=== PATIENT | female | born 1995 | race Hispanic/Latino ===

== ENCOUNTER 2020-06-07 14:11 | Outpatient (CLI) | payer MEDICAID ==
[2020-06-07] MEDS ORDERED: LACTATED RINGERS 1,000 ML IV SCH (15:00)
[2020-06-07 16:04] LABS: Bacteria,Urine 1+ /HPF (Negative); Bilirubin,Urine NEG (Negative); Blood,Urine SM (Negative); Color,Urine Yellow (Yellow); Mucus,Urine FEW /HPF; Urobilinogen,Urine < 2.0 mg/dL (<2.0)
[2020-06-07 16:05] LABS: Protein,Urine >500 mg/dL (Negative)
[2020-06-07 16:43] VITALS: BP 143/84
== END 2020-06-07 16:55 | disposition home or self-care (01) ==
LOC: TRG 14:11 → APU 14:37 → TRG 16:55
PROVIDERS: ATTEND Obstetrics & Gynecology
DX: O26.893 Other specified pregnancy related conditions, third trimester (principal); R10.9 Unspecified abdominal pain; Z3A.31 31 weeks gestation of pregnancy
CPT/HCPCS: 59025; 81001

== ENCOUNTER 2020-06-19 04:29 | Observation (INO) | payer MEDICAID ==
[2020-06-19] MEDS ORDERED: SODIUM CHLORIDE NASAL SPRAY 44ML NS PRN (05:26)
[2020-06-19] MEDS ORDERED: DEXTROSE 50% IN WATER (25GM) 50 ML SYRINGE IV PRN ×2 (05:26→12:34)
[2020-06-19] MEDS ORDERED: ONDANSETRON 4 MG/2 ML INJ IV PRN (05:26)
[2020-06-19] MEDS ORDERED: ACETAMINOPHEN 325 MG TAB PO PRN (05:26)
[2020-06-19] MEDS ORDERED: DOCUSATE SODIUM 100 MG CAP PO PRN (05:26)
[2020-06-19] MEDS ORDERED: MAGNESIUM SULFATE 4 GM/100 ML BAG IV ONE (05:33)
[2020-06-19] MEDS ORDERED: CALCIUM GLUCONATE 1000 MG/10 ML INJ IV ONE (05:33)
[2020-06-19] MEDS ORDERED: hydrALAZINE 20 MG/1 ML INJ IV PRN (05:33)
[2020-06-19] MEDS ORDERED: MAGNESIUM SULFATE 40GM/1000ML 40 GM/1,000 ML BAG IV SCH (06:00)
--- NOTE | 2020-06-19 06:56 | Ultrasound Report ---
ULTRASOUND BIOPHYSICAL PROFILE INDICATION: IUP at 32 wks, dm, chtn, well being. COMPARISON: None available. FINDINGS: breathing movement = 2 Gross body movement = 2 tone = 2 Qualitative amniotic fluid volume = 2 Total biophysical score = /8 IMPRESSION: biophysical profile = 04/14 OBSTETRIC ULTRASOUND INDICATION: IUP at 32 wks, dm, chtn, well being COMPARISON: No prior relevant imaging studies are available for comparison. TECHNIQUE: Transabdominal imaging was performed. FINDINGS: Single viable intrauterine is identified. lie: Cephalic. Heart rate: 1:30 bpm. measurements are as follows: Biparietal diameter 8.1 cm, 32 weeks 5 days Head circumference 29 cm, 32 weeks 3 days Abdominal circumference 27 cm, 31 weeks 0 days Femur length 5.7 cm, 30 weeks 0 days Amniotic fluid index is 11.4 cm, within normal limits. CONCLUSION: Single viable intrauterine currently in cephalic position. Amniotic fluid index is within n ormal limits. Signer Name: Reji Smith MD Signed: 06/19/2020 6:52 AM Workstation Name: [id number]
[2020-06-19 07:18] LABS: Basophils % (Auto) 0.2 % (0.0-1.8); Eosinophils # (Auto) 0.2 K/mm3 (0.0-0.4); Eosinophils % (Auto) 1.3 % (0.0-4.3); Hematocrit 36.9 % (30.3-42.9); Hemoglobin 13.2 gm/dl (10.1-14.3); Lymphocytes # (Auto) 2.2 K/mm3 (1.2-5.4); Mean Corpuscular HGB Conc 36 % (30-34); Mean Corpuscular Volume 86 fl (79-97); Monocytes # (Auto) 0.7 K/mm3 (0.0-0.8); Monocytes % (Auto) 4.3 % (0.0-7.3); Platelet Count 191 K/mm3 (140-440); Red Blood Count 4.31 M/mm3 (3.65-5.03); Red Cell Distribution Width 12.8 % (13.2-15.2)
[2020-06-19 07:23] LABS: Bilirubin,Urine NEG (Negative); Blood,Urine SM (Negative); Color,Urine Yellow (Yellow); Granular Casts,Urine 4 /LPF; Mucus,Urine FEW /HPF; Urobilinogen,Urine < 2.0 mg/dL (<2.0)
[2020-06-19 07:24] LABS: Protein,Urine >500 mg/dL (Negative)
[2020-06-19 07:40] LABS: Alanine Aminotransferase 10 units/L (7-56); Albumin 2.6 g/dL (3.9-5); Blood Urea Nitrogen 10 mg/dL (7-17); Calcium 9.4 mg/dL (8.4-10.2); Hemolysis Index 20
[2020-06-19 07:45] LABS: BUN/Creatinine Ratio 33
[2020-06-19] MEDS: BETAMET ACET/BETAMET NA PH 6 MG/ML INJ 5 ML MDV IM SCH (07:45)
[2020-06-19 08:40] LABS: Uric Acid 3.7 mg/dL (3.5-7.6)
--- NOTE | 2020-06-19 08:53 | History and Physical Report ---
History of Present Illness Date of examination: 06/19/20 Date of admission: 06/19/20 05:26 History of present illness: 24y/o @ 32+3 weeks presents for a PIH workup for chronic hypertension and GDMA2 on insulin. The patient was admitted with a complaint of headache and elevated blood pressures. Past History Past Medical History: hypertension, diabetes Past Surgical History: cholecystectomy, D&C, other (Ocular surgery) Social history: single - Obstetrical History Expected Date of Delivery: 08/11/20 Actual Gestation: 32 Week(s) 3 Day(s) : 4 Para: 0 Hx # Term Pregnancies: 0 Number of Pregnancies: 0 Spontaneous Abortions: 3 Induced : 0 Number of Living Children: 0 Medications and Allergies Allergies Allergy/AdvReac Type Severity Reaction Status Date / Time No Known Allergies Allergy Verified 06/07/20 15:00 Active Meds: Active Medications Acetaminophen (Tylenol) 650 mg PO Q4H PRN PRN Reason: Pain MILD(1-3)/Fever >100.5/MARIA Last Admin: 06/19/20 07:50 Dose: 650 mg Documented by: Betamethasone Acet/Betameth SodPhos (Celestone Soluspan) 12 mg IM Q24H TONG Stop: 06/20/20 06:01 Last Admin: 06/19/20 07:45 Dose: 12 mg Documented by: Dextrose (D50w (25gm) Syringe) 50 ml IV Q30MIN PRN; Protocol PRN Reason: Hypoglycemia Docusate Sodium (Colace) 100 mg PO Q12H PRN PRN Reason: Constipation Hydralazine HCl (Apresoline) 5 mg IV Q30MIN PRN PRN Reason: Hypertension Lactated Ringer's (Lactated Ringers) 1,000 mls @ 125 mls/hr IV DIRECT TONG Magnesium Sulfate (Magnesium Sulfate 40gm/1000ml) 40 gm in 1,000 mls @ 50 mls/hr IV DIRECT TONG Last Admin: 06/19/20 08:20 Dose: 2 gm/hr, 50 mls/hr Documented by: Labetalol HCl (Labetalol) 20 mg IV ONCE PRN PRN Reason: Hypertension Multivitamins/Iron/Calcium ( Vitamin) 1 each PO QDAY TONG Ondansetron HCl (Zofran) 4 mg IV Q6H PRN PRN Reason: Nausea And Vomiting Last Admin: 06/19/20 08:07 Dose: 4 mg Documented by: Sodium Chloride (Deep Sea) 2 spray NS Q4H PRN PRN Reason: Congestion Review of Systems All systems: negative - Vital Signs Vital signs: Vital Signs Pulse BP 86 158/91 06/19/20 05:00 06/19/20 05:00 Temp Pulse Resp BP Pulse Ox 97.9 F 102 H 20 146/84 96 06/19/20 05:27 06/19/20 08:34 06/19/20 05:27 06/19/20 08:34 06/19/20 07:07 - Physical Exam Breasts: Positive: deferred Cardiovascular: Regular rate Lungs: Positive: Clear to auscultation Results Result Diagrams: 06/19/20 06:35 06/19/20 06:35 Abnormal lab results 06/19/20 06/19/20 Range/Units 06:35 06:35 WBC 15.6 H (4.5-11.0) K/mm3 MCHC 36 H (30-34) % RDW 12.8 L (13.2-15.2) % Seg Neutrophils % 80.2 H (40.0-70.0) % Seg Neutrophils # 12.5 H (1.8-7.7) K/mm3 Sodium 135 L (137-145) mmol/L Carbon Dioxide 20 L (22-30) mmol/L Creatinine 0.3 L (0.6-1.2) mg/dL Total Protein 5.5 L (6.3-8.2) g/dL Albumin 2.6 L (3.9-5) g/dL All other labs normal. Assessment and Plan - Patient Problems (1) Chronic hypertension affecting Current Visit: Yes Status: Acute Plan to address problem: Admitted for magnesium and steroid therapy Patient is undergoing 24-hour urine collection and PIH labs (2) Gestational diabetes mellitus (GDM) affecting Current Visit: Yes Status: Acute
[2020-06-19] MEDS: PRENATAL VIT27-FE FUMARATE-FOLIC ACID VIT TAB PO SCH (09:56)
[2020-06-19] MEDS ORDERED: INSULIN NPH, HUMAN 100 UNIT/1 ML SUB-Q SCH ×3 (12:23→17:00)
[2020-06-19] MEDS ORDERED: INSULIN REGULAR, HUMAN 100 UNIT/ML 3ML VIAL SUB-Q SCH ×3 (12:24→22:00)
[2020-06-19] MEDS: INSULIN REGULAR, HUMAN 100 UNIT/ML 3ML VIAL SUB-Q SCH (13:43)
[2020-06-19] MEDS: LACTATED RINGERS 1,000 ML IV SCH (18:11)
[2020-06-20] MEDS: INSULIN LISPRO 100 UNIT/ML VIAL 3 mL SUB-Q SCH ×3 (01:31→13:11)
[2020-06-20] MEDS: LACTATED RINGERS 1,000 ML IV SCH (06:25)
[2020-06-20] MEDS: BETAMET ACET/BETAMET NA PH 6 MG/ML INJ 5 ML MDV IM SCH (07:56)
[2020-06-20] MEDS: INSULIN REGULAR, HUMAN 100 UNIT/ML 3ML VIAL SUB-Q SCH (08:09)
[2020-06-20] MEDS: PRENATAL VIT27-FE FUMARATE-FOLIC ACID VIT TAB PO SCH (11:43)
--- NOTE | 2020-06-20 12:46 | Consultation ---
History of Present Illness - Reason for Consult Consult date: 06/20/20 Past History Social history: single Medications and Allergies Allergies Allergy/AdvReac Type Severity Reaction Status Date / Time No Known Allergies Allergy Verified 06/07/20 15:00 Home Medications Medication Instructions Recorded Confirmed Last Taken Type Insulin NPH Human Isophane 20 units SUB-Q ACHS 06/20/20 06/20/20 Unknown History [Humulin N] Insulin Regular, Human [Humulin R] 16 units SUB-Q ACHS 06/20/20 06/20/20 06/19/20 22:00 History Pnv,Calcium 72/Iron,Carb/Folic 1 tab PO DAILY 06/20/20 06/20/20 06/19/20 10:00 History [ Plus Iron Tablet] hydrOXYzine PAMOATE [Vistaril] 50 mg PO Q6HR PRN 06/20/20 06/20/20 Unknown History labetaloL [Labetalol 100mg TAB] 100 mg PO BID 06/20/20 06/20/20 06/19/20 22:00 History Active Meds: Active Medications Acetaminophen (Tylenol) 650 mg PO Q4H PRN PRN Reason: Pain MILD(1-3)/Fever >100.5/MARIA Last Admin: 06/19/20 07:50 Dose: 650 mg Documented by: Dextrose (D50w (25gm) Syringe) 50 ml IV Q30MIN PRN; Protocol PRN Reason: Hypoglycemia Docusate Sodium (Colace) 100 mg PO Q12H PRN PRN Reason: Constipation Hydralazine HCl (Apresoline) 5 mg IV Q30MIN PRN PRN Reason: Hypertension Lactated Ringer's (Lactated Ringers) 1,000 mls @ 125 mls/hr IV DIRECT TONG Last Admin: 06/20/20 06:25 Dose: 125 mls/hr Documented by: Magnesium Sulfate (Magnesium Sulfate 40gm/1000ml) 40 gm in 1,000 mls @ 50 mls/hr IV DIRECT TONG Last Infusion: 06/20/20 09:40 Dose: Infused Documented by: Insulin Human Lispro (Humalog) 0 unit SUB-Q Q6H TONG; Protocol Last Admin: 06/20/20 06:14 Dose: 3 unit Documented by: Insulin Human NPH (Humulin N) 12 unit SUB-Q QPMDIAB TONG Last Admin: 06/19/20 19:10 Dose: 12 unit Documented by: Insulin Human NPH (Humulin N) 20 unit SUB-Q QDDIAB [facility] Last Admin: 06/19/20 13:42 Dose: 20 unit Documented by: Insulin Human Regular (Humulin R) 12 unit SUB-Q QHS [facility] Last Admin: 06/19/20 21:51 Dose: 12 unit Documented by: Insulin Human Regular (Humulin R) 30 unit SUB-Q QDDIAB [facility] Last Admin: 06/20/20 08:09 Dose: 30 unit Documented by: Labetalol HCl (Labetalol) 20 mg IV ONCE PRN PRN Reason: Hypertension Labetalol HCl (Labetalol) 200 mg PO BID [facility] Last Admin: 06/20/20 11:43 Dose: 200 mg Documented by: Multivitamins/Iron/Calcium ( Vitamin) 1 each PO QDAY [facility] Last Admin: 06/20/20 11:43 Dose: 1 each Documented by: Ondansetron HCl (Zofran) 4 mg IV Q6H PRN PRN Reason: Nausea And Vomiting Last Admin: 06/19/20 08:07 Dose: 4 mg Documented by: Sodium Chloride (Deep Sea) 2 spray NS Q4H PRN PRN Reason: Congestion Exam - Constitutional Vitals: Temp Pulse Resp BP Pulse Ox 98.1 F 98 H 18 127/65 97 06/20/20 08:26 06/20/20 12:42 06/20/20 06:29 06/20/20 12:35 06/20/20 12:42 Results - Labs CBC & Chem 7: 06/19/20 06:35 06/19/20 06:35 Labs: Abnormal lab results 06/19/20 06/19/20 06/20/20 Range/Units 17:38 18:20 00:24 POC Glucose 258 H (70-105) Magnesium 4.10 H 4.60 H (1.7-2.3) mg/dL 06/20/20 06/20/20 06/20/20 Range/Units 01:10 05:54 06:24 POC Glucose 251 H 207 H (70-105) Magnesium 5.10 H (1.7-2.3) mg/dL 06/20/20 Range/Units 12:53 POC Glucose 280 H (70-105) Magnesium (1.7-2.3) mg/dL Assessment and Plan [facility] Full consult to follow
[2020-06-20 15:35] VITALS: BP 140/68
[2020-06-20] MEDS ORDERED: FAMOTIDINE 20 MG/2 ML INJ IV SCH (16:00)
--- NOTE | 2020-06-20 17:04 | Progress Note ---
Assessment and Plan A: IUP at 33w1d Chronic HTN with superimposed preeclampsia, on labetalol 200 mg BID Type 2 DM, insulin dependent Obesity P: Pt will be discharged with close follow up this week with OB and MFM Plan to deliver at 34 wks Subjective - Subjective Date of service: 06/20/20 Principal diagnosis: CHTN, Type II DM, IUP at 33 wks Interval history: Pt without complaints initially, but pt now threatening to leave against medical advice because of the discomfort of the bed. 24 hour urine returned with 5587.5 mg of protein today, indicative of superimposed preclampsia. tracing reassuring. No obstetric complaints. Patient reports: movement normal, no new complaints, no loss of fluid, no vaginal bleeding, no contractions Objective - Vital Signs Vital Signs: Vital Signs - 12hr 06/20/20 06/20/20 06/20/20 05:34 06:29 06:34 Temperature Pulse Rate 86 86 Respiratory 18 Rate Blood Pressure 140/75 126/66 O2 Sat by Pulse Oximetry 06/20/20 06/20/20 06/20/20 07:34 08:26 09:47 Temperature 98.1 F Pulse Rate 86 86 Respiratory Rate Blood Pressure 140/67 O2 Sat by Pulse 94 Oximetry 06/20/20 06/20/20 06/20/20 09:49 09:53 09:57 Temperature Pulse Rate 100 H 101 H 98 H Respiratory Rate Blood Pressure 147/87 O2 Sat by Pulse 94 96 95 Oximetry 06/20/20 06/20/20 06/20/20 10:02 10:08 10:13 Temperature Pulse Rate 91 H 89 89 Respiratory Rate Blood Pressure O2 Sat by Pulse 94 93 94 Oximetry 06/20/20 06/20/20 06/20/20 10:18 10:20 10:23 Temperature Pulse Rate 85 87 86 Respiratory Rate Blood Pressure O2 Sat by Pulse 93 94 94 Oximetry 06/20/20 06/20/20 06/20/20 10:27 10:32 10:34 Temperature Pulse Rate 89 88 89 Respiratory Rate Blood Pressure 129/64 O2 Sat by Pulse 94 95 94 Oximetry 06/20/20 06/20/20 06/20/20 10:38 10:41 10:43 Temperature Pulse Rate 90 101 H 99 H Respiratory Rate Blood Pressure O2 Sat by Pulse 95 94 96 Oximetry 06/20/20 06/20/20 06/20/20 10:48 10:49 10:53 Temperature Pulse Rate 93 H 90 90 Respiratory Rate Blood Pressure O2 Sat by Pulse 96 94 96 Oximetry 06/20/20 06/20/20 06/20/20 10:58 11:03 11:08 Temperature Pulse Rate 95 H 95 H 91 H Respiratory Rate Blood Pressure O2 Sat by Pulse 98 96 96 Oximetry 06/20/20 06/20/20 06/20/20 11:13 11:17 11:23 Temperature Pulse Rate 92 H 98 H 91 H Respiratory Rate Blood Pressure O2 Sat by Pulse 96 96 96 Oximetry 06/20/20 06/20/20 06/20/20 11:29 11:35 11:39 Temperature Pulse Rate 95 H Respiratory Rate Blood Pressure O2 Sat by Pulse 73 L 83 L 97 Oximetry 06/20/20 06/20/20 06/20/20 11:44 11:49 11:54 Temperature Pulse Rate 94 H 92 H 111 H Respiratory Rate Blood Pressure O2 Sat by Pulse 97 97 97 Oximetry 06/20/20 06/20/20 06/20/20 12:00 12:05 12:09 Temperature Pulse Rate 106 H 101 H 96 H Respiratory Rate Blood Pressure O2 Sat by Pulse 96 97 97 Oximetry 06/20/20 06/20/20 06/20/20 12:14 12:19 12:32 Temperature Pulse Rate 102 H 98 H 100 H Respiratory Rate Blood Pressure O2 Sat by Pulse 96 97 97 Oximetry 06/20/20 06/20/20 06/20/20 12:35 12:38 12:42 Temperature Pulse Rate 98 H 99 H 98 H Respiratory Rate Blood Pressure 127/65 O2 Sat by Pulse 97 97 Oximetry 06/20/20 06/20/20 06/20/20 12:47 12:52 12:57 Temperature Pulse Rate 97 H 98 H 100 H Respiratory Rate Blood Pressure O2 Sat by Pulse 97 97 97 Oximetry 06/20/20 06/20/20 06/20/20 13:02 13:07 13:12 Temperature Pulse Rate 99 H 95 H 94 H Respiratory Rate Blood Pressure O2 Sat by Pulse 97 96 98 Oximetry 06/20/20 06/20/20 06/20/20 13:17 13:22 13:27 Temperature Pulse Rate 93 H 92 H 102 H Respiratory Rate Blood Pressure O2 Sat by Pulse 97 97 96 Oximetry 06/20/20 06/20/2006/20/20 13:32 13:34 13:37 Temperature Pulse Rate 95 H 93 H 92 H Respiratory Rate Blood Pressure 143/65 O2 Sat by Pulse 97 97 Oximetry 06/20/20 06/20/20 06/20/20 13:42 13:47 13:52 Temperature Pulse Rate 93 H 92 H 90 Respiratory Rate Blood Pressure O2 Sat by Pulse 98 98 97 Oximetry 06/20/20 06/20/20 06/20/20 13:57 14:04 14:09 Temperature Pulse Rate 90 104 H 92 H Respiratory Rate Blood Pressure O2 Sat by Pulse 98 96 97 Oximetry 06/20/20 06/20/20 06/20/20 14:14 14:15 14:19 Temperature Pulse Rate 91 H 54 L 94 H Respiratory Rate Blood Pressure O2 Sat by Pulse 97 90 97 Oximetry 06/20/20 06/20/20 06/20/20 14:24 14:30 14:33 Temperature Pulse Rate 90 93 H 91 H Respiratory Rate Blood Pressure 143/86 O2 Sat by Pulse 97 97 Oximetry 06/20/20 06/20/20 06/20/20 14:35 14:40 14:44 Temperature Pulse Rate 95 H 101 H 95 H Respiratory Rate Blood Pressure O2 Sat by Pulse 97 98 97 Oximetry 06/20/20 06/20/20 06/20/20 14:49 14:53 15:12 Temperature Pulse Rate 92 H 54 L 73 Respiratory Rate Blood Pressure O2 Sat by Pulse 97 82 L 91 Oximetry 06/20/20 06/20/20 06/20/20 15:18 15:25 15:26 Temperature Pulse Rate 96 H Respiratory Rate Blood Pressure O2 Sat by Pulse 86 94 98 Oximetry 06/20/20 06/20/20 06/20/20 15:31 15:34 15:35 Temperature Pulse Rate 101 H 98 H 99 H Respiratory Rate Blood Pressure 140/68 O2 Sat by Pulse 97 97 Oximetry 06/20/20 06/20/20 06/20/20 15:41 15:46 15:51 Temperature Pulse Rate 95 H 111 H 93 H Respiratory Rate Blood Pressure O2 Sat by Pulse 98 98 98 Oximetry 06/20/20 06/20/20 06/20/20 15:55 16:01 16:05 Temperature Pulse Rate 94 H 96 H 99 H Respiratory Rate Blood Pressure O2 Sat by Pulse 99 98 98 Oximetry 06/20/20 06/20/20 06/20/20 16:08 16:11 16:15 Temperature Pulse Rate 50 L Respiratory Rate Blood Pressure O2 Sat by Pulse 89 87 82 L Oximetry 06/20/20 06/20/20 06/20/20 16:21 16:23 16:30 Temperature Pulse Rate 26 L 127 H Respiratory Rate Blood Pressure O2 Sat by Pulse 82 L 82 L 83 L Oximetry - Exam Breasts: deferred Abdomen: Present: soft (obese, gravid ) Uterus: Present: normal (gravid ) FHR: auscultation normal Uterine Contraction Monitor Mode: External Uterine Contraction Pattern: Absent Uterine Tone Measurement Phase: Resting Extremities: edema (1+) - Labs Labs: Abnormal Labs 06/19/20 06/19/20 06/19/20 06:35 06:35 11:35 WBC 15.6 H MCHC 36 H RDW 12.8 L Seg Neutrophils % 80.2 H Seg Neutrophils # 12.5 H Sodium 135 L Carbon Dioxide 20 L Creatinine 0.3 L POC Glucose 195 H Magnesium Total Protein 5.5 L Albumin 2.6 L Ur Total Protein 24 Hr Urine Total Protein 06/19/20 06/19/20 06/20/20 17:38 18:20 00:24 WBC MCHC RDW Seg Neutrophils % Seg Neutrophils # Sodium Carbon Dioxide Creatinine POC Glucose 258 H Magnesium 4.10 H 4.60 H Total Protein Albumin Ur Total Protein 24 Hr Urine Total Protein 06/20/20 06/20/20 06/20/20 01:10 05:54 06:24 WBC MCHC RDW Seg Neutrophils % Seg Neutrophils # Sodium Carbon Dioxide Creatinine POC Glucose 251 H 207 H Magnesium 5.10 H Total Protein Albumin Ur Total Protein 24 Hr Urine Total Protein 06/20/20 06/20/20 06/20/20 07:00 12:53 13:08 WBC MCHC RDW Seg Neutrophils % Seg Neutrophils # Sodium Carbon Dioxide Creatinine POC Glucose 280 H Magnesium 3.40 H Total Protein Albumin Ur Total Protein 24 Hr 5587.50 H Urine Total Protein 149 H Laboratory Results - last 24 hr 06/19/20 06/19/20 06/20/20 17:38 18:20 00:24 POC Glucose 258 H Magnesium 4.10 H 4.60 H Urine Total Volume Ur Total Protein 24 Hr Urine Total Protein 06/20/20 06/20/20 06/20/20 01:10 05:54 06:24 POC Glucose 251 H 207 H Magnesium 5.10 H Urine Total Volume Ur Total Protein 24 Hr Urine Total Protein 06/20/20 06/20/20 06/20/20 07:00 12:53 13:08 POC Glucose 280 H Magnesium 3.40 H Urine Total Volume 3750 Ur Total Protein 24 Hr 5587.50 H Urine Total Protein 149 H - Results US- obstetric: report reviewed
--- NOTE | 2020-06-20 17:12 | Discharge Summary ---
Providers - Providers Date of Admission: 06/19/20 05:26 Date of discharge: 06/20/20 Attending physician: GIANNA BUTTS 06/20/20 07:39 Consult to Physician [CONS] Routine Comment: JC Consulting Provider: NUVIA JULIEN Physician Instructions: CONSULT WAS CALLED TO /ENZO Reason For Exam: IUP at 32 wks, chronic htn, rule out preeclampsia, Primary care physician: GIANNA BUTTS Hospitalization Reason for admission: other (elevated blood pressure ) Procedure details: IV Magnesium Sulfate for 24 hours Two dose of betamethasone Discharge diagnosis: other (IUP at 33 wks, chronic hypertension with superimposed preeclampsia, Type II DM ) Hospital course: Patient was admitted with elevated blood pressures in the setting of chronic hypertension. She was started on labetalol 200 mg twice daily. She also received 24 hours of IV magnesium sulfate for seizure prophylaxis and 2 doses of betamethasone for lung maturity. A 24-hour urine was collected which yielded over 5500 mg of protein confirming the diagnosis of chronic hypertension with superimposed preeclampsia. The patient will be instructed to follow-up with maternal- medicine and her primary OB later this week. Condition at discharge: Stable Disposition: DC-01 TO HOME OR SELFCARE - Discharge Diagnoses (1) Chronic hypertension with superimposed pre-eclampsia Status: Acute (2) Diabetes in Status: Acute Qualifiers: Diabetes in type: pre-existing, type 2 Trimester: third trimester Qualified Code(s): O24.113 - Pre-existing type 2 diabetes mellitus, in , third trimester (3) Obesity Status: Acute Qualifiers: Obesity type: unspecified obesity type Obesity classification: adult class 1 (BMI 30 - 34.9) Serious obesity comorbidity presence: unspecified whether serious comorbidity present Body mass index: BMI 34.0-34.9 Qualified Code(s): E66.9 - Obesity, unspecified; Z68.34 - Body mass index [BMI] 34.0-34.9, adult Plan - Discharge Medications Prescriptions: labetaloL [Labetalol 200mg TAB] 200 mg PO BID #60 tablet - Provider Discharge Summary Activity: routine Diet: other (diabetic diet) Additional instructions: [] Smoking cessation referral if applicable(refer to patient education folder for contact #) [] Refer to [facility] [address] Booklet Call your doctor immediately for: * Fever > 100.5 * Heavy vaginal bleeding ( >1 pad per hour) * Severe persistent headache * Shortness of breath * Reddened, hot, painful area to leg or breast * Drainage or odor from incision. * Keep incision clean and dry at all times and follow doctor's instructions regarding bathing/showering - Follow up plan Follow up: NUVIA JULIEN MD [Staff Physician] - 7 Days GIANNA BUTTS MD [Primary Care Provider] - 48 Hours
== END 2020-06-20 18:00 | disposition home or self-care (01) ==
LOC: TRG 04:29 → APU 04:39 → LD 05:25 → TRG 05:26 → LD 05:26
PROVIDERS: ADMIT Obstetrics & Gynecology; ATTEND Obstetrics & Gynecology
DX: O10.913 Unspecified pre-existing hypertension complicating pregnancy, third trimester (principal); Z20.828 Contact with and (suspected) exposure to other viral communicable diseases; O14.93 Unspecified pre-eclampsia, third trimester; O24.414 Gestational diabetes mellitus in pregnancy, insulin controlled; O26.893 Other specified pregnancy related conditions, third trimester; R51.9 Headache, unspecified; O99.213 Obesity complicating pregnancy, third trimester; Z79.4 Long term (current) use of insulin; Z3A.32 32 weeks gestation of pregnancy; Z90.49 Acquired absence of other specified parts of digestive tract; Z98.890 Other specified postprocedural states
CPT/HCPCS: 36415; 76816; 76819; 80053; 81001; 82962; 83615; 83735; 84156; 84550; 85025; 86850; 86900; 86901; 96361; 96365; 96366; 96372; 96375; G0378; J0702; J2405; J3475; J7120; U0003; J1815

== ENCOUNTER 2020-06-26 18:08 | Inpatient (IN) | payer MEDICAID ==
[~2020-06-26 18:08] MED LIST: INSULIN NPH, HUMAN 100 UNIT/1 ML SUB-Q SCH; INSULIN REGULAR, HUMAN 100 UNIT/ML 3ML VIAL SUB-Q SCH
[2020-06-26] MEDS ORDERED: ONDANSETRON 4 MG/2 ML INJ IV PRN (18:52)
[2020-06-26] MEDS ORDERED: DOCUSATE SODIUM 100 MG CAP PO PRN (18:52)
[2020-06-26] MEDS ORDERED: diphenhydrAMINE 25 MG CAP PO PRN (18:52)
[2020-06-26] MEDS ORDERED: SODIUM CHLORIDE NASAL SPRAY 44ML NS PRN (18:52)
[2020-06-26] MEDS ORDERED: MAGNESIUM HYDROXIDE (MOM) ORAL LIQD UDC PO PRN (18:52)
[2020-06-26] MEDS ORDERED: LACTATED RINGERS 1,000 ML IV SCH (19:00)
[2020-06-26] MEDS ORDERED: DEXTROSE 50% IN WATER (25GM) 50 ML SYRINGE IV PRN (19:01)
--- NOTE | 2020-06-26 20:44 | Ultrasound Report ---
ULTRASOUND BIOPHYSICAL PROFILE INDICATION: well being. COMPARISON: None available. FINDINGS: heart rate is 142 beats per minute. breathing movement = 2 Gross body movement = 2 tone = 2 Qualitative amniotic fluid volume = 2 IMPRESSION: biophysical profile = 04/14 Signer Name: Jared Chamberlain Jr, MD Signed: 06/26/2020 8:40 PM Workstation Name: [id number]
--- NOTE | 2020-06-26 20:44 | Ultrasound Report ---
OB ULTRASOUND >= 14 WEEKS FETUS INDICATION: iup at 33 wks, gestational hypertension, preeclampsia COMPARISON: 06/19/2020 FINDINGS: A single gestation intrauterine is present with cephalic presentation. heart tones me asure 166 bpm. PAT was not measured. anatomical survey was not performed. Biparietal diameter is 8.2 cm which equals 32 weeks 5 days. Head circumference is 31.0 cm which equals 34 weeks 0 days. Abdominal circumference is 28.0 cm which equals 32 weeks 0 days. Femur length is 5.7 cm which equals 30 weeks 1 day. Overall estimated sonographic age is 32 weeks 2 days. EDC: 08/19/2020. HC/AC ratio: 1.1. Cephalic index: 75 Estimated weight 1817 g +/- 269 g. 5th percentile. IMPRESSION: Viable intrauterine as described. Signer Name: Jared Chamberlain Jr, MD Signed: 06/26/2020 8:39 PM Workstation Name: [id number]
[2020-06-26 20:54] LABS: Basophils % (Auto) 0.2 % (0.0-1.8); Eosinophils # (Auto) 0.2 K/mm3 (0.0-0.4); Eosinophils % (Auto) 1.2 % (0.0-4.3); Lymphocytes # (Auto) 2.2 K/mm3 (1.2-5.4); Lymphocytes % (Auto) 16.7 % (13.4-35.0); Mean Corpuscular HGB Conc 37 % (30-34); Mean Corpuscular Volume 86 fl (79-97); Monocytes # (Auto) 0.6 K/mm3 (0.0-0.8); Monocytes % (Auto) 4.8 % (0.0-7.3); Platelet Count 214 K/mm3 (140-440); Red Blood Count 4.43 M/mm3 (3.65-5.03); Red Cell Distribution Width 12.8 % (13.2-15.2)
[2020-06-26 20:55] LABS: Hematocrit 38.1 % (30.3-42.9)
[2020-06-26 21:13] LABS: Uric Acid 4.8 mg/dL (3.5-7.6)
[2020-06-26] MEDS: ACETAMINOPHEN 325 MG TAB PO PRN (21:29)
[2020-06-26 21:38] LABS: Alanine Aminotransferase < 5 units/L (7-56)
[2020-06-26] MEDS ORDERED: CALCIUM CARBONATE 500 MG TAB CHEW PO PRN (21:44)
[2020-06-26] MEDS ORDERED: INSULIN REGULAR, HUMAN 100 UNIT/ML 3ML VIAL SUB-Q SCH (21:58)
[2020-06-26] MEDS: SIMETHICONE 80 MG CHEW TAB PO PRN (21:58)
[2020-06-27] MEDS ORDERED: ZOLPIDEM 5 MG TAB PO PRN (00:17)
--- NOTE | 2020-06-27 07:49 | History and Physical Report ---
History of Present Illness Date of examination: 06/27/20 Date of admission: 06/26/20 18:08 Chief complaint: Sent for observation from the office History of present illness: Pt is a 24 year old female JOSE ANTONIO 08/11/20 at 33w4d with a known history of insulin dependent diabetes and chronic hypertension with superimposed preeclampsia on labetalol 200 mg BID who presents for blood pressure monitoring after missing a scheduled M appointment. She reports intermittent headache minimally improved by Tylenol and this morning her blood pressures are noted to be 170/90s. She has had care at [facility] with comanagement by [facility] since 12 wks complicated by the aforementioned chronic hypertension with superimposed preeclampsia, insulin dependent diabetes mellitus, anxiety previously on Prozac and Vistaril on 02/15/20, genital herpes with no evidence of lesions or prodrome, subchorionic hemorrhage in the first trimester, and AFP positive for Down's Syndrome with NIPT low risk. Her GBS status is unknown. Past History Past Medical History: hypertension (chronic hypertension with superimposed preeclampsia on labetalol 200 mg BID ), diabetes (AM: NPH 36u, Reg 26. PM: 16 NPH, 16 Reg ), GERD, other (IBS ) Past Surgical History: cholecystectomy, D&C, other (Eye surgery ) [employer]PER[employer]PER[employer]OR History: herpes (no lesion or prodrome ) Family/Genetic History: diabetes, hypertension Social history: no significant social history - Obstetrical History Expected Date of Delivery: 08/11/20 Actual Gestation: 33 Week(s) 4 Day(s) : 4 Para: 0 Hx # Term Pregnancies: 0 Number of Pregnancies: 0 Spontaneous Abortions: 2 Induced : 1 Number of Living Children: 0 Medications and Allergies Allergies Allergy/AdvReac Type Severity Reaction Status Date / Time No Known Allergies Allergy Verified 06/07/20 15:00 Home Medications Medication Instructions Recorded Confirmed Last Taken Type Insulin NPH Human Isophane 20 units SUB-Q ACHS 06/20/20 06/26/20 06/26/20 History [Humulin N] Insulin Regular, Human [Humulin R] 16 units SUB-Q ACHS 06/20/20 06/26/20 06/26/20 History Pnv,Calcium 72/Iron,Carb/Folic 1 tab PO DAILY 06/20/20 06/26/20 06/26/20 History [ Plus Iron Tablet] hydrOXYzine PAMOATE [Vistaril] 50 mg PO Q6HR PRN 06/20/20 06/26/20 06/24/20 History labetaloL [Labetalol 100mg TAB] 100 mg PO BID 06/20/20 06/26/20 06/26/20 11:00 History labetaloL [Labetalol 200mg TAB] 200 mg PO BID #60 tablet 06/20/20 06/26/20 06/26/20 11:00 Rx Active Meds: Active Medications Acetaminophen (Tylenol) 650 mg PO Q4H PRN PRN Reason: Pain MILD(1-3)/Fever >100.5/MARIA Last Admin: 06/26/20 21:29 Dose: 650 mg Documented by: Calcium Carbonate/Glycine (Tums) 500 mg PO Q4H PRN PRN Reason: Indigestion Last Admin: 06/27/20 05:39 Dose: 500 mg Documented by: Dextrose (D50w (25gm) Syringe) 50 ml IV Q30MIN PRN; Protocol PRN Reason: Hypoglycemia Diphenhydramine HCl (Benadryl) 25 mg PO Q6H PRN PRN Reason: Itching Docusate Sodium (Colace) 100 mg PO Q12H PRN PRN Reason: Constipation Lactated Ringer's (Lactated Ringers) 1,000 mls @ 125 mls/hr IV DIRECT TONG Last Admin: 06/26/20 20:50 Dose: 125 mls/hr Documented by: Insulin Human NPH (Humulin N) 16 unit SUB-Q QPMDIAB [facility] Last Admin: 06/26/20 21:00 Dose: 16 unit Documented by: Insulin Human NPH (Humulin N) 36 unit SUB-Q QDDIAB [facility] Insulin Human Regular (Humulin R) 0 unit SUB-Q [facility]; Protocol Insulin Human Regular (Humulin R) 26 unit SUB-Q QDDIAB [facility] Insulin Human Regular (Humulin R) 16 unit SUB-Q QPMDIAB [facility] Last Admin: 06/26/20 21:00 Dose: 16 unit Documented by: Labetalol HCl (Labetalol) 200 mg PO BID [facility] Last Admin: 06/26/20 21:28 Dose: 200 mg Documented by: Magnesium Hydroxide (Milk Of Magnesia) 30 ml PO QHS PRN PRN Reason: Laxative Effect Multivitamins/Iron/Calcium ( Vitamin) 1 each PO QDAY TONG Ondansetron HCl (Zofran) 4 mg IV Q6H PRN PRN Reason: Nausea And Vomiting Simethicone (Mylicon) 80 mg PO Q6H PRN PRN Reason: Gas pain Last Admin: 06/26/20 21:58 Dose: 80 mg Documented by: Sodium Chloride (Deep Sea) 2 spray NS Q4H PRN PRN Reason: Congestion Zolpidem Tartrate (Ambien) 5 mg PO QHS PRN PRN Reason: Sleep Last Admin: 06/27/20 00:35 Dose: 5 mg Documented by: Review of Systems All systems: negative - Vital Signs Vital signs: Vital Signs Pulse Ox 86 06/20/20 16:36 Temp Pulse Resp BP Pulse Ox 98.1 F 90 12 173/86 83 L 06/27/20 06:21 06/27/20 07:17 06/26/20 19:03 06/27/20 07:17 06/20/20 16:44 - Physical Exam Breasts: Positive: deferred Abdomen: Positive: soft (obese, gravid ) Uterus: Positive: enlarged (gravid ) - Obstetrical FHR: auscultation normal Uterine Contraction Monitor Mode: External Cervical Dilatation: 0 (per Vivian ) Uterine Contraction Pattern: Absent Uterine Tone Measurement Phase: Resting Results Result Diagrams: 06/26/20 20:17 06/26/20 20:17 Abnormal lab results 06/26/20 06/26/20 06/26/20 Range/Units 20:17 20:17 20:17 WBC 13.1 H (4.5-11.0) K/mm3 MCHC 37 H (30-34) % RDW 12.8 L (13.2-15.2) % Seg Neutrophils % 77.1 H (40.0-70.0) % Seg Neutrophils # 10.1 H (1.8-7.7) K/mm3 Creatinine 0.5 L (0.6-1.2) mg/dL AST < 5 L (5-40) units/L ALT < 5 L (7-56) units/L Lactate Dehydrogenase 277 H (91-180) units/L All other labs normal. Assessment and Plan A: IUP at 33w4d s/p two doses of betamethasone on 06/19 and 06/20, s/p magnesium sulfate during that hospitalization x 24 hours, now with headache and worsening blood pressures indicative of worsening disease. IUGR EFW 1817g +/1 269g (5%ile) Insulin-dependent Diabetes Mellitus Obesity Anxiety previously prescribed Prozac and Vistaril AFP positive for Down's Syndrome, NIPT low risk Genital Herpes without lesion or prodrome GBS unknown P: Admit to labor and delivery NICU consult Magnesium for seizure prophylaxis Valtrex for genital herpes suppression Ampicillin for GBS prophylaxis Cervical ripening with cervidil Closely monitor maternal and status
[2020-06-27] MEDS ORDERED: DEXTROSE 50% IN WATER (25GM) 50 ML SYRINGE IV PRN (07:52)
[2020-06-27] MEDS ORDERED: miSOPROStol 200 MCG TAB PR PRN (07:53)
[2020-06-27] MEDS ORDERED: TERBUTALINE 1 MG/1 ML INJ SUB-Q PRN (07:53)
[2020-06-27] MEDS ORDERED: ONDANSETRON 4 MG/2 ML INJ IV PRN (07:53)
[2020-06-27] MEDS ORDERED: NALOXONE 0.4 MG/1 ML INJ IV PRN (07:53)
[2020-06-27] MEDS ORDERED: BUTORPHANOL 2 MG/1 ML INJ IV PRN (07:53)
[2020-06-27] MEDS ORDERED: DINOPROSTONE 10 MG VAG SUPP VG ONE (07:53)
[2020-06-27] MEDS ORDERED: LIDOCAINE (2%) 20 MG/1 ML VIAL 20 ML MDV INFILTRATI ONE (07:53)
[2020-06-27] MEDS ORDERED: MAGNESIUM SULFATE 4 GM/100 ML BAG IV ONE (07:55)
[2020-06-27] MEDS ORDERED: INSULIN NPH, HUMAN 100 UNIT/1 ML SUB-Q SCH ×2 (08:00→09:30)
[2020-06-27] MEDS ORDERED: OXYTOCIN DRIP 30 UNITS/500 ML BAG IV SCH (08:00)
[2020-06-27] MEDS ORDERED: INSULIN REGULAR, HUMAN 100 UNIT/ML 3ML VIAL SUB-Q SCH ×3 (08:00→17:00)
[2020-06-27] MEDS ORDERED: LACTATED RINGERS 1,000 ML IV SCH (08:00)
[2020-06-27] MEDS ORDERED: INSULIN LISPRO 100 UNIT/ML VIAL 3 mL SUB-Q SCH (08:00)
[2020-06-27] MEDS ORDERED: DINOPROSTONE 10 MG VAG SUPP VG SCH (09:00)
[2020-06-27] MEDS ORDERED: CALCIUM GLUCONATE 1000 MG/10 ML INJ IV ONE (09:00)
[2020-06-27] MEDS ORDERED: fentaNYL 100 MCG/2 ML INJ IV PRN (10:00)
[2020-06-27] MEDS: MAGNESIUM SULFATE 40GM/1000ML 40 GM/1,000 ML BAG IV SCH (10:22)
[2020-06-27] MEDS: SIMETHICONE 80 MG CHEW TAB PO PRN (10:40)
[2020-06-27] MEDS: FAMOTIDINE 20 MG/2 ML INJ IV SCH (10:41)
[2020-06-27] MEDS: valACYclovir 500 MG TAB PO SCH (10:44)
[2020-06-27] MEDS: PRENATAL VIT27-FE FUMARATE-FOLIC ACID VIT TAB PO SCH (10:44)
--- NOTE | 2020-06-27 17:06 | Consultation ---
Consult Note - Parent Education I met with parent(s) and discussed the following:: Need for NICU admission, Poss ible need for intubation and surfactant or other resp support, Temperature regulation, Possible need for IV fluids/TPN and IV antibiotics, Possible need for umbilical lines, Importance of providing breast milk & encouraged pumping aft delivery, Slow feeding advancement and monitoring of tolerance. NG/OG feeds, Need to monitor for jaundice Parent(s) demonstrated understanding of all the information:: Yes Additional Comment: Discussed all of the above with mother and grandmother. Verbalized understanding. Mother is a previous 28 weeker. Assessment and Plan - Assessment Gestation:: 33 Estimated Weight: 1817g Baby's gender: Female Additional Comment: 24 yo mother who is being induced for elevated BP, superimposed preeclampsia, IDDM. Prenatals: A+, rubella immune, RPR non reactive, HIV negative, Hep B negative, GC/Chlamydia negative, HSV2 positive, no history of outbreaks, no lesions reported at present, on Valtrex for suppression, GBS unknown, AFP +[id number], low risk NIPT, maternal anxiety disorder on Prozac and Vistaril recently. Currently receiving magnesium, labetalol, and received steroids x2 7 days ago on a previous admission. - Plan Plan: Agree with Mag & Will attend delivery Please call NICU with questions
[2020-06-27] MEDS: ACETAMINOPHEN 325 MG TAB PO PRN ×2 (17:34→20:16)
[2020-06-27] MEDS ORDERED: MINERAL OIL 30 ML ORAL LIQD PO PRN (22:00)
[2020-06-27] MEDS: LACTATED RINGERS 1,000 ML IV SCH (22:42)
[2020-06-27] MEDS: miSOPROStol 25 MCG TAB VG PRN (22:59)
[2020-06-28] MEDS: LACTATED RINGERS 1,000 ML IV SCH ×3 (06:16→15:02)
[2020-06-28] MEDS: miSOPROStol 25 MCG TAB VG PRN (08:15)
--- NOTE | 2020-06-28 08:42 | Progress Note ---
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 Cook catheter placed, each balloon inflated with 60cc sterile water. Cytotec administered sublingual. BG and insulin as ordered Valtrex suppression Continue Magnesium sulfate infusion Appreciate NICU consult Closely monitor clinical status Subjective - Subjective Date of service: 06/28/20 Principal diagnosis: IUP at 33w5d, cHTN with superimposed preeclampsia w/ severe features Interval history: Day 2 of IOL for chronic HTN with superimposed preeclampsia with severe features. S/p Cervidil and Cytotec. Patient reports: movement normal, no new complaints, no loss of fluid, no vaginal bleeding, no contractions Objective - Vital Signs Vital Signs: Vital Signs - 12hr 06/27/20 06/27/20 06/27/20 21:03 21:37 22:00 Temperature Pulse Rate 77 77 Respiratory 18 Rate Blood Pressure 129/72 129/72 Blood Pressure [Left] O2 Sat by Pulse Oximetry 06/27/20 06/27/20 06/27/20 22:12 22:38 23:06 Temperature 96.8 F L Pulse Rate 78 Respiratory 19 18 Rate Blood Pressure 124/63 Blood Pressure [Left] O2 Sat by Pulse Oximetry 06/28/20 06/28/20 06/28/20 00:07 00:37 01:02 Temperature Pulse Rate 70 Respiratory 17 19 Rate Blood Pressure 103/59 Blood Pressure [Left] O2 Sat by Pulse Oximetry 06/28/20 06/28/20 06/28/20 02:00 02:18 02:37 Temperature Pulse Rate 66 73 Respiratory 18 Rate Blood Pressure 120/57 130/67 Blood Pressure [Left] O2 Sat by Pulse Oximetry 06/28/20 06/28/20 06/28/20 03:05 03:38 04:00 Temperature 98.0 F Pulse Rate 75 Respiratory 17 19 Rate Blood Pressure 135/72 Blood Pressure [Left] O2 Sat by Pulse Oximetry 06/28/20 06/28/20 06/28/20 04:39 05:00 05:39 Temperature Pulse Rate 65 67 Respiratory 18 Rate Blood Pressure 125/61 125/83 Blood Pressure [Left] O2 Sat by Pulse Oximetry 06/28/20 06/28/20 06/28/20 06:00 06:37 07:37 Temperature Pulse Rate 71 74 Respiratory 18 Rate Blood Pressure 120/68 136/68 Blood Pressure [Left] O2 Sat by Pulse Oximetry 06/28/20 06/28/20 06/28/20 08:00 08:06 08:09 Temperature 97.4 F L Pulse Rate 73 73 75 Respiratory 18 Rate Blood Pressure 135/91 148/99 Blood Pressure 135/91 [Left] O2 Sat by Pulse 98 Oximetry - Exam Lungs: Normal air movement Abdomen: Present: soft FHR: category 1 Cervical Dilatation: 0.5 Cervical Effacement Percentage: 0 station: -4 Uterine Contraction Pattern: Absent - Labs Labs: Abnormal Labs 06/26/20 06/26/20 06/26/20 20:17 20:17 20:17 WBC 13.1 H MCHC 37 H RDW 12.8 L Seg Neutrophils % 77.1 H Seg Neutrophils # 10.1 H Creatinine 0.5 L POC Glucose Magnesium AST < 5 L ALT < 5 L Lactate Dehydrogenase 277 H 06/26/20 06/27/20 06/27/20 21:11 08:33 18:38 WBC MCHC RDW Seg Neutrophils % Seg Neutrophils # Creatinine POC Glucose 167 H 247 H Magnesium 4.00 H AST ALT Lactate Dehydrogenase 06/27/20 06/28/20 22:43 05:19 WBC MCHC RDW Seg Neutrophils % Seg Neutrophils # Creatinine POC Glucose Magnesium 4.60 H 5.10 H AST ALT Lactate Dehydrogenase Laboratory Results - last 24 hr 06/26/20 06/27/20 06/27/20 21:11 08:33 18:38 POC Glucose 167 H 247 H Magnesium 4.00 H Coronavirus (PCR) 06/27/20 06/27/20 06/28/20 22:43 Unknown 05:19 POC Glucose Magnesium 4.60 H 5.10 H Coronavirus (PCR) Negative
[2020-06-28] MEDS: PRENATAL VIT27-FE FUMARATE-FOLIC ACID VIT TAB PO SCH (09:30)
[2020-06-28] MEDS: valACYclovir 500 MG TAB PO SCH (09:30)
[2020-06-28] MEDS ORDERED: hydrOXYzine HCL 100 MG/2 ML INJ IM ONE (10:00)
[2020-06-28] MEDS ORDERED: ePHEDrine SULFATE 50 MG/1 ML INJ IV PRN (13:36)
[2020-06-28] MEDS ORDERED: NALOXONE 2 MG/2 ML INJ IV PRN (13:36)
--- NOTE | 2020-06-28 13:38 | Anesthesia Consultation ---
Anesthesia Consult and Med Hx Date of service: 06/28/20 - Airway Anesthetic Teeth Evaluation: Good ROM Head & Neck: Adequate Mental/Hyoid Distance: Adequate Mallampati Class: Class II Intubation Access Assessment: Probably Good - Pulmonary Exam CTA: Yes - Cardiac Exam Cardiac Exam: RRR - Pre-Operative Health Status ASA Pre-Surgery Classification: ASA3 Proposed Anesthetic Plan: Epidural - Pulmonary Hx Asthma: No Hx Pneumonia: No - Cardiovascular System Hx Hypertension: Yes (and pre e) - Central Nervous System Hx Seizures: No Hx Psychiatric Problems: Yes (depression anxiety age 14) - Endocrine Hx Renal Disease: No Hx Non-Insulin Dependent Diabetes: Yes Hx Hypothyroidism: No Hx Hyperthyroidism: No - Hematic Hx Anemia: No Hx Sickle Cell Disease: No - Other Systems Hx Alcohol Use: No
--- NOTE | 2020-06-28 13:47 | Progress Note ---
Labor Epidural - Labor Epidural Start Time: 13:42 Stop Time: 13:48 Performed by:: AKTIE MESA Procedure: Patient is requesting epidural for labor pain. H&P, and labs reviewed. Procedure explained, questions answered, consent obtained. Patient in sitting position with blood pressure cuff and pulse ox on and working. Timeout performed immediately before start of procedure. Sterile betadine prep/drape. 3 mL 1% lidocaine skin wheal at L[3]-L[4]. 18-gauge Touhy epidural needle advanced to [id number] with saline at [7] cm. 27-gauge spinal needle advanced until clear, free-flowing CSF. Intrathecal dexmedetomidine [5] mcg administered and needle removed. Epidural catheter advanced to [12] cm, negative aspiration for blood and csf, negative test dose 3 ml 1.5% lidocaine with epinephrine. Sterile steri-strips and tegaderm applied, followed by tape reinforcement. Patient tolerated procedure well. Evita SRNA
[2020-06-28] MEDS: ePHEDrine SULFATE 50 MG/1 ML INJ IV PRN ×2 (14:15→14:17)
[2020-06-28] MEDS: OXYTOCIN DRIP 30 UNITS/500 ML BAG IV SCH (18:15)
[2020-06-28] MEDS: fentaNYL-BUPIV 2 MCG/ML-0.125% 200 MCG/100 ML BAG EPIDURAL SCH (18:39)
[2020-06-28] MEDS ORDERED: AMPICILLIN/NS 2 GM/100 ML 2 GM/100 ML BAG IV ONE (21:44)
[2020-06-28] MEDS: FAMOTIDINE 20 MG/2 ML INJ IV SCH (22:25)
[2020-06-29] MEDS: AMPICILLIN/NS 1 GM/50 ML 1 GM/50 ML BAG IV SCH ×6 (02:52→22:29)
[2020-06-29] MEDS: ACETAMINOPHEN 325 MG TAB PO PRN ×2 (03:16→10:35)
[2020-06-29] MEDS: LACTATED RINGERS 1,000 ML IV SCH ×2 (06:55→22:35)
[2020-06-29] MEDS: fentaNYL-BUPIV 2 MCG/ML-0.125% 200 MCG/100 ML BAG EPIDURAL SCH ×3 (07:20→23:35)
--- NOTE | 2020-06-29 08:44 | Progress Note ---
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 Minimal cervical change overnight. Category I tracing. SVE: /-2. AROM- clear. IUPC placed. Patient reports: movement normal, no new complaints, no loss of fluid, no vaginal bleeding, no contractions Objective - Vital Signs Vital Signs: Vital Signs - 12hr 06/28/20 06/28/20 06/28/20 20:47 20:48 20:52 Temperature Pulse Rate 89 86 86 Respiratory Rate Blood Pressure 133/76 O2 Sat by Pulse 96 97 Oximetry 06/28/20 06/28/20 06/28/20 20:57 21:02 21:07 Temperature Pulse Rate 85 80 79 Respiratory Rate Blood Pressure 128/70 O2 Sat by Pulse 97 96 96 Oximetry 06/28/20 06/28/20 06/28/20 21:11 21:12 21:17 Temperature Pulse Rate 80 79 81 Respiratory Rate Blood Pressure 133/72 O2 Sat by Pulse 94 95 96 Oximetry 06/28/20 06/28/20 06/28/20 21:22 21:27 21:28 Temperature Pulse Rate 79 82 83 Respiratory Rate Blood Pressure O2 Sat by Pulse 96 95 94 Oximetry 06/28/20 06/28/20 06/28/20 21:32 21:33 21:37 Temperature Pulse Rate 83 80 86 Respiratory Rate Blood Pressure 128/58 O2 Sat by Pulse 95 95 Oximetry 06/28/20 06/28/20 06/28/20 21:39 21:42 21:44 Temperature Pulse Rate 85 85 88 Respiratory Rate Blood Pressure O2 Sat by Pulse 94 95 94 Oximetry 10/06/28/20 06/28/20 21:47 21:49 21:52 Temperature Pulse Rate 101 H 85 89 Respiratory Rate Blood Pressure 156/65 O2 Sat by Pulse 96 96 Oximetry 06/28/20 06/28/20 06/28/20 21:57 22:02 22:03 Temperature Pulse Rate 78 75 88 Respiratory Rate Blood Pressure 126/65 O2 Sat by Pulse 96 96 Oximetry 06/28/20 06/28/20 06/28/20 22:07 22:11 22:12 Temperature Pulse Rate 88 90 88 Respiratory Rate Blood Pressure 129/60 129/60 O2 Sat by Pulse 96 96 Oximetry 06/28/20 06/28/20 06/28/20 22:17 22:18 22:22 Temperature Pulse Rate 82 81 79 Respiratory Rate Blood Pressure 125/58 O2 Sat by Pulse 96 95 Oximetry 06/28/20 06/28/20 06/28/20 22:27 22:32 22:33 Temperature Pulse Rate 83 89 81 Respiratory Rate Blood Pressure 133/68 O2 Sat by Pulse 97 97 Oximetry 06/28/20 06/28/20 06/28/20 22:37 22:42 22:47 Temperature Pulse Rate 85 87 85 Respiratory Rate Blood Pressure 125/60 O2 Sat by Pulse 96 96 96 Oximetry 06/28/20 06/28/20 06/28/20 22:52 22:57 23:02 Temperature Pulse Rate 86 88 85 Respiratory Rate Blood Pressure O2 Sat by Pulse 96 96 96 Oximetry 06/28/20 06/28/20 06/28/20 23:03 23:07 23:12 Temperature Pulse Rate 86 89 87 Respiratory Rate Blood Pressure 135/68 O2 Sat by Pulse 97 96 Oximetry 06/28/20 06/28/20 06/28/20 23:15 23:17 23:18 Temperature 97.9 F Pulse Rate 82 83 Respiratory 16 Rate Blood Pressure 140/73 O2 Sat by Pulse 95 Oximetry 06/28/20 06/28/20 06/28/20 23:22 23:27 23:32 Temperature Pulse Rate 84 96 H 95 H Respiratory Rate Blood Pressure O2 Sat by Pulse 95 88 97 Oximetry 06/28/20 06/28/20 06/28/20 23:33 23:37 23:42 Temperature Pulse Rate 96 H 87 87 Respiratory Rate Blood Pressure O2 Sat by Pulse 92 97 95 Oximetry 10/06/28/20 06/28/20 23:47 23:48 23:52 Temperature Pulse Rate 93 H 88 90 Respiratory Rate Blood Pressure 120/64 O2 Sat by Pulse 94 94 Oximetry 06/28/20 06/28/20 06/29/20 23:53 23:57 00:02 Temperature Pulse Rate 88 91 H 89 Respiratory Rate Blood Pressure O2 Sat by Pulse 94 94 77 L Oximetry 06/29/20 06/29/20 06/29/20 00:03 00:07 00:12 Temperature Pulse Rate 86 90 89 Respiratory Rate Blood Pressure 128/69 O2 Sat by Pulse 94 94 Oximetry 06/29/20 06/29/20 06/29/20 00:16 00:17 00:18 Temperature Pulse Rate 92 H 91 H 90 Respiratory Rate Blood Pressure 122/64 O2 Sat by Pulse 94 95 Oximetry 06/29/20 06/29/20 06/29/20 00:22 00:28 00:33 Temperature Pulse Rate 89 89 92 H Respiratory Rate Blood Pressure O2 Sat by Pulse 94 94 95 Oximetry 06/29/20 06/29/20 06/29/20 00:38 00:43 00:48 Temperature Pulse Rate 85 88 86 Respiratory Rate Blood Pressure 116/60 118/62 O2 Sat by Pulse 95 94 94 Oximetry 06/29/20 06/29/20 06/29/20 00:53 00:58 01:03 Temperature Pulse Rate 92 H 95 H 91 H Respiratory Rate Blood Pressure 119/61 O2 Sat by Pulse 94 96 Oximetry 06/29/20 06/29/20 06/29/20 01:04 01:09 01:11 Temperature Pulse Rate 86 89 95 H Respiratory Rate Blood Pressure O2 Sat by Pulse 96 96 94 Oximetry 06/29/20 06/29/20 06/29/20 01:14 01:19 01:24 Temperature Pulse Rate 92 H 88 92 H Respiratory Rate Blood Pressure 125/70 O2 Sat by Pulse 96 96 96 Oximetry 06/29/20 06/29/20 06/29/20 01:29 01:33 01:34 Temperature Pulse Rate 88 83 85 Respiratory Rate Blood Pressure 121/63 O2 Sat by Pulse 96 96 Oximetry 06/29/20 06/29/20 06/29/20 01:39 01:44 01:49 Temperature Pulse Rate 89 92 H 91 H Respiratory Rate Blood Pressure 123/63 O2 Sat by Pulse 96 96 97 Oximetry 06/29/20 06/29/20 06/29/20 01:54 01:59 02:03 Temperature Pulse Rate 89 82 81 Respiratory Rate Blood Pressure 131/69 O2 Sat by Pulse 96 96 Oximetry 06/29/20 06/29/20 06/29/20 02:04 02:09 02:14 Temperature Pulse Rate 86 85 84 Respiratory Rate Blood Pressure O2 Sat by Pulse 95 96 96 Oximetry 06/29/20 06/29/20 06/29/20 02:19 02:24 02:29 Temperature Pulse Rate 81 82 85 Respiratory Rate Blood Pressure 137/69 O2 Sat by Pulse 94 96 97 Oximetry 06/29/20 06/29/20 06/29/20 02:34 02:35 02:37 Temperature Pulse Rate 82 82 85 Respiratory Rate Blood Pressure 136/62 O2 Sat by Pulse 95 94 Oximetry 06/29/20 06/29/20 06/29/20 02:39 02:44 02:49 Temperature Pulse Rate 83 88 88 Respiratory Rate Blood Pressure O2 Sat by Pulse 96 95 97 Oximetry 06/29/20 06/29/20 06/29/20 02:50 02:53 02:54 Temperature 97.4 F L Pulse Rate 86 82 Respiratory 16 Rate Blood Pressure 150/67 O2 Sat by Pulse 97 Oximetry 06/29/20 06/29/20 06/29/20 02:59 03:03 03:04 Temperature Pulse Rate 84 84 89 Respiratory Rate Blood Pressure 135/65 O2 Sat by Pulse 97 98 Oximetry 06/29/20 06/29/20 06/29/20 03:09 03:14 03:19 Temperature Pulse Rate 84 86 88 Respiratory Rate Blood Pressure O2 Sat by Pulse 96 96 97 Oximetry 06/29/20 06/29/20 06/29/20 03:21 03:23 03:24 Temperature Pulse Rate 81 77 83 Respiratory Rate Blood Pressure 146/86 144/83 O2 Sat by Pulse 97 Oximetry 06/29/20 06/29/20 06/29/20 03:25 03:27 03:29 Temperature Pulse Rate 82 80 81 Respiratory Rate Blood Pressure 136/71 138/74 139/74 O2 Sat by Pulse 99 Oximetry 06/29/20 06/29/20 06/29/20 03:31 03:34 03:39 Temperature Pulse Rate 86 84 86 Respiratory Rate Blood Pressure 134/73 O2 Sat by Pulse 97 96 Oximetry 06/29/20 06/29/20 06/29/20 03:44 03:49 03:54 Temperature Pulse Rate 94 H 83 82 Respiratory Rate Blood Pressure O2 Sat by Pulse 96 96 97 Oximetry 06/29/20 06/29/20 06/29/20 03:59 04:03 04:04 Temperature Pulse Rate 77 80 84 Respiratory Rate Blood Pressure 127/76 O2 Sat by Pulse 97 97 Oximetry 06/29/20 06/29/20 06/29/20 04:09 04:14 04:19 Temperature Pulse Rate 79 81 82 Respiratory Rate Blood Pressure O2 Sat by Pulse 96 95 95 Oximetry 06/29/20 06/29/20 06/29/20 04:23 04:24 04:29 Temperature Pulse Rate 79 80 77 Respiratory Rate Blood Pressure O2 Sat by Pulse 94 94 94 Oximetry 06/29/20 06/29/20 06/29/20 04:30 04:34 04:37 Temperature Pulse Rate 78 74 80 Respiratory Rate Blood Pressure 134/61 O2 Sat by Pulse 94 94 94 Oximetry 06/29/20 06/29/20 06/29/20 04:39 04:44 04:47 Temperature Pulse Rate 91 H 85 81 Respiratory Rate Blood Pressure O2 Sat by Pulse 95 96 94 Oximetry 06/29/20 06/29/20 06/29/20 04:49 04:54 04:59 Temperature Pulse Rate 78 85 84 Respiratory Rate Blood Pressure O2 Sat by Pulse 95 95 95 Oximetry 06/29/20 06/29/20 06/29/20 05:00 05:03 05:04 Temperature Pulse Rate 84 83 86 Respiratory Rate Blood Pressure 122/59 O2 Sat by Pulse 94 95 Oximetry 06/29/20 06/29/20 06/29/20 05:05 05:09 05:10 Temperature Pulse Rate 83 83 83 Respiratory Rate Blood Pressure O2 Sat by Pulse 94 94 94 Oximetry 06/29/20 06/29/20 06/29/20 05:14 05:19 05:24 Temperature Pulse Rate 81 81 81 Respiratory Rate Blood Pressure O2 Sat by Pulse 97 94 94 Oximetry 06/29/20 06/29/20 06/29/20 05:29 05:33 05:34 Temperature Pulse Rate 82 83 83 Respiratory Rate Blood Pressure 111/56 O2 Sat by Pulse 94 94 Oximetry 06/29/20 06/29/20 06/29/20 05:37 05:39 05:44 Temperature Pulse Rate 84 83 84 Respiratory Rate Blood Pressure O2 Sat by Pulse 94 94 94 Oximetry 06/29/20 06/29/20 06/29/20 05:45 05:49 05:53 Temperature Pulse Rate 84 84 95 H Respiratory Rate Blood Pressure O2 Sat by Pulse 94 94 94 Oximetry 06/29/20 06/29/20 06/29/20 05:54 05:59 06:01 Temperature Pulse Rate 100 H 84 82 Respiratory Rate Blood Pressure O2 Sat by Pulse 97 95 94 Oximetry 06/29/20 06/29/20 06/29/20 06:03 06:04 06:09 Temperature Pulse Rate 86 81 80 Respiratory Rate Blood Pressure 115/58 O2 Sat by Pulse 95 95 Oximetry 06/29/20 06/29/20 06/29/20 06:10 06:34 06:59 Temperature 97.9 F Pulse Rate 80 81 Respiratory 16 Rate Blood Pressure 116/55 O2 Sat by Pulse 94 Oximetry 06/29/20 06/29/20 06/29/20 07:07 07:12 07:17 Temperature Pulse Rate 77 87 72 Respiratory Rate Blood Pressure O2 Sat by Pulse 97 98 98 Oximetry 06/29/20 06/29/20 06/29/20 07:22 07:23 07:24 Temperature 97.8 F Pulse Rate 76 82 Respiratory 18 Rate Blood Pressure 131/75 O2 Sat by Pulse 98 Oximetry 06/29/20 06/29/20 06/29/20 07:27 07:32 07:33 Temperature Pulse Rate 77 78 88 Respiratory Rate Blood Pressure 143/87 O2 Sat by Pulse 98 98 Oximetry 06/29/20 06/29/20 06/29/20 07:37 07:42 07:47 Temperature Pulse Rate 83 78 80 Respiratory Rate Blood Pressure O2 Sat by Pulse 98 97 97 Oximetry 06/29/20 06/29/20 06/29/20 07:52 08:03 08:08 Temperature Pulse Rate 82 78 85 Respiratory Rate Blood Pressure 132/74 O2 Sat by Pulse 97 97 Oximetry 06/29/20 06/29/20 06/29/20 08:13 08:18 08:23 Temperature Pulse Rate 75 73 80 Respiratory Rate Blood Pressure O2 Sat by Pulse 96 96 96 Oximetry 06/29/20 06/29/20 06/29/20 08:28 08:33 08:38 Temperature Pulse Rate 85 80 84 Respiratory Rate Blood Pressure 150/84 O2 Sat by Pulse 98 98 98 Oximetry - Exam Breasts: deferred Abdomen: Present: soft (obese, gravid ) Uterus: Present: normal (gravid ) FHR: auscultation normal Uterine Contraction Monitor Mode: External Cervical Dilatation: 4 Cervical Effacement Percentage: 50 station: -2 Uterine Contraction Pattern: Irregular Uterine Tone Measurement Phase: Resting Uterine Contraction Intensity: Mild Extremities: edema (1+) - Labs Labs: Abnormal Labs 06/26/20 06/26/20 06/26/20 20:17 20:17 20:17 WBC 13.1 H MCHC 37 H RDW 12.8 L Seg Neutrophils % 77.1 H Seg Neutrophils # 10.1 H Creatinine 0.5 L POC Glucose Magnesium AST < 5 L ALT < 5 L Lactate Dehydrogenase 277 H 06/26/20 06/27/20 06/27/20 21:11 08:33 18:38 WBC MCHC RDW Seg Neutrophils % Seg Neutrophils # Creatinine POC Glucose 167 H 247 H Magnesium 4.00 H AST ALT Lactate Dehydrogenase 06/27/20 06/27/20 06/28/20 20:23 22:43 05:19 WBC MCHC RDW Seg Neutrophils % Seg Neutrophils # Creatinine POC Glucose 106 H Magnesium 4.60 H 5.10 H AST ALT Lactate Dehydrogenase 06/28/20 06/28/20 06/28/20 12:40 15:28 18:16 WBC MCHC RDW Seg Neutrophils % Seg Neutrophils # Creatinine POC Glucose 144 H 157 H 117 H Magnesium AST ALT Lactate Dehydrogenase 06/28/20 06/29/20 06/29/20 22:32 00:31 02:29 WBC MCHC RDW Seg Neutrophils % Seg Neutrophils # Creatinine POC Glucose 109 H 126 H Magnesium 5.70 H AST ALT Lactate Dehydrogenase 06/29/20 06/29/20 06:30 06:52 WBC MCHC RDW Seg Neutrophils % Seg Neutrophils # Creatinine POC Glucose 138 H Magnesium 5.40 H AST ALT Lactate Dehydrogenase Laboratory Results - last 24 hr 06/27/20 06/27/20 06/27/20 12:47 16:55 20:23 POC Glucose 101 84 106 H Magnesium 06/28/20 06/28/20 06/28/20 00:22 04:42 08:32 POC Glucose 72 92 88 Magnesium 06/28/20 06/28/20 06/28/20 12:40 15:28 18:16 POC Glucose 144 H 157 H 117 H Magnesium 06/28/20 06/29/20 06/29/20 22:32 00:31 02:29 POC Glucose 109 H 126 H Magnesium 5.70 H 06/29/20 06/29/20 06:30 06:52 POC Glucose 138 H Magnesium 5.40 H
[2020-06-29] MEDS ORDERED: BETAMET ACET/BETAMET NA PH 6 MG/ML INJ 5 ML MDV IM SCH (09:00)
[2020-06-29] MEDS: OXYTOCIN DRIP 30 UNITS/500 ML BAG IV SCH (09:08)
[2020-06-29] MEDS: PRENATAL VIT27-FE FUMARATE-FOLIC ACID VIT TAB PO SCH (09:57)
[2020-06-29] MEDS: FAMOTIDINE 20 MG/2 ML INJ IV SCH ×2 (09:57→22:28)
[2020-06-29] MEDS: valACYclovir 500 MG TAB PO SCH (09:57)
[2020-06-29] MEDS: INSULIN REGULAR, HUMAN 100 UNIT/ML 3ML VIAL SUB-Q SCH (21:24)
[2020-06-29] MEDS: MAGNESIUM SULFATE 40GM/1000ML 40 GM/1,000 ML BAG IV SCH (22:07)
[2020-06-30] MEDS ORDERED: BICITRA ORAL LIQD 30ML PO ONE (02:47)
[2020-06-30] MEDS ORDERED: METOCLOPRAMIDE 10 MG/2 ML INJ IV ONE (02:47)
[2020-06-30] MEDS ORDERED: FAMOTIDINE 20 MG/2 ML INJ IV ONE (02:47)
[2020-06-30] MEDS ORDERED: ceFAZolin/Water 2 GM/20 ML 2 GM/20 ML SYRINGE IV NR (03:00)
[2020-06-30 03:16] LABS: Hematocrit 37.2 % (30.3-42.9); Hemoglobin 13.1 gm/dl (10.1-14.3); Mean Corpuscular HGB Conc 35 % (30-34); Mean Corpuscular Volume 87 fl (79-97); Platelet Count 200 K/mm3 (140-440); Red Blood Count 4.27 M/mm3 (3.65-5.03); Red Cell Distribution Width 12.8 % (13.2-15.2)
[2020-06-30] MEDS ORDERED: LIDOCAINE 2%/EPINEPHRINE 1:200,000 VIAL (20 ML) INFILTRATI ONE (03:22)
[2020-06-30] MEDS ORDERED: BUPIVACAINE/PF (0.5%) 5 MG/1 ML 30 ML VIAL INFILTRATI ONE (03:23)
--- NOTE | 2020-06-30 03:29 | Progress Note ---
Assessment and Plan Discussed with patient and her mother that she has not progressed in almost 24 hours. Pt receptive for . Consents signed. Will proceed with . Subjective - Subjective Date of service: 06/30/20 Principal diagnosis: IUP at 33w6d, cHTN with superimposed preeclampsia w/ severe features Interval history: Pt is on 4th day of induction secondary to preeclampsia and diabetes. Pt had balloon placed that was removed on 06/28 where she was 4cm. She remained 4cm and had arom on the morning of 06/29. Pt was started on pitocin and progressed only one cm to 5 after almost 24 hours of pitocin. Pt failed induction. Will now proceed with . Patient reports: movement normal, no new complaints, no loss of fluid, no vaginal bleeding, no contractions Objective - Vital Signs Vital Signs: Vital Signs - 12hr 06/29/20 06/29/20 06/29/20 15:27 15:32 15:33 Temperature 97.9 F Pulse Rate 81 86 Respiratory 18 Rate Blood Pressure Blood Pressure [Left] O2 Sat by Pulse 95 95 Oximetry 06/29/20 06/29/20 06/29/20 15:34 15:37 15:42 Temperature Pulse Rate 81 78 81 Respiratory Rate Blood Pressure 130/67 Blood Pressure [Left] O2 Sat by Pulse 94 95 95 Oximetry 06/29/20 06/29/20 06/29/20 15:43 15:47 15:48 Temperature Pulse Rate 79 82 80 Respiratory Rate Blood Pressure Blood Pressure [Left] O2 Sat by Pulse 94 95 94 Oximetry 06/29/20 06/29/20 06/29/20 16:03 16:33 17:04 Temperature Pulse Rate 79 85 86 Respiratory Rate Blood Pressure 123/68 132/71 137/72 Blood Pressure [Left] O2 Sat by Pulse Oximetry 06/29/20 06/29/20 06/29/20 17:33 17:34 18:05 Temperature Pulse Rate 83 88 82 Respiratory Rate Blood Pressure 134/72 141/72 129/71 Blood Pressure [Left] O2 Sat by Pulse Oximetry 06/29/20 06/29/20 06/29/20 18:38 18:39 18:42 Temperature Pulse Rate 86 85 100 H Respiratory Rate Blood Pressure 139/82 Blood Pressure [Left] O2 Sat by Pulse 96 93 Oximetry 06/29/20 06/29/20 06/29/20 18:44 18:49 18:54 Temperature Pulse Rate 84 85 84 Respiratory Rate Blood Pressure Blood Pressure [Left] O2 Sat by Pulse 94 95 95 Oximetry 06/29/20 06/29/20 06/29/20 18:57 18:58 18:59 Temperature 97.8 F Pulse Rate 93 H 90 88 Respiratory 18 Rate Blood Pressure 143/84 Blood Pressure 143/84 [Left] O2 Sat by Pulse 95 Oximetry 06/29/20 06/29/20 06/29/20 19:03 19:04 19:10 Temperature Pulse Rate 88 89 83 Respiratory Rate Blood Pressure 138/82 Blood Pressure [Left] O2 Sat by Pulse 96 94 Oximetry 06/29/20 06/29/20 06/29/20 19:15 19:20 19:25 Temperature Pulse Rate 82 88 80 Respiratory Rate Blood Pressure Blood Pressure [Left] O2 Sat by Pulse 94 96 97 Oximetry 06/29/20 06/29/20 06/29/20 19:30 19:32 19:33 Temperature Pulse Rate 84 85 80 Respiratory Rate Blood Pressure 129/59 Blood Pressure [Left] O2 Sat by Pulse 95 94 Oximetry 06/29/20 06/29/20 06/29/20 19:35 19:38 19:40 Temperature Pulse Rate 85 79 85 Respiratory Rate Blood Pressure Blood Pressure [Left] O2 Sat by Pulse 95 94 96 Oximetry 06/29/20 06/29/20 06/29/20 19:45 19:46 19:50 Temperature Pulse Rate 86 79 101 H Respiratory Rate Blood Pressure Blood Pressure [Left] O2 Sat by Pulse 95 94 96 Oximetry 06/29/20 06/29/20 06/29/20 19:55 20:00 20:03 Temperature Pulse Rate 88 92 H 85 Respiratory Rate Blood Pressure 141/68 Blood Pressure [Left] O2 Sat by Pulse 97 96 Oximetry 06/29/20 06/29/20 06/29/20 20:05 20:10 20:15 Temperature Pulse Rate 56 L 91 H 82 Respiratory Rate Blood Pressure Blood Pressure [Left] O2 Sat by Pulse 92 94 94 Oximetry 06/29/20 06/29/20 06/29/20 20:20 20:25 20:30 Temperature Pulse Rate 86 83 87 Respiratory Rate Blood Pressure Blood Pressure [Left] O2 Sat by Pulse 96 96 95 Oximetry 06/29/20 06/29/20 06/29/20 20:33 20:35 20:40 Temperature Pulse Rate 83 84 84 Respiratory Rate Blood Pressure 138/66 Blood Pressure [Left] O2 Sat by Pulse 94 95 95 Oximetry 06/29/20 06/29/20 06/29/20 20:45 20:46 20:50 Temperature Pulse Rate 85 92 H 93 H Respiratory Rate Blood Pressure Blood Pressure [Left] O2 Sat by Pulse 95 94 91 Oximetry 06/29/20 06/29/20 06/29/20 20:55 21:00 21:03 Temperature Pulse Rate 86 86 85 Respiratory Rate Blood Pressure 132/63 Blood Pressure [Left] O2 Sat by Pulse 96 96 94 Oximetry 06/29/20 06/29/20 06/29/20 21:13 21:18 21:23 Temperature Pulse Rate 87 92 H 91 H Respiratory Rate Blood Pressure Blood Pressure [Left] O2 Sat by Pulse 96 96 96 Oximetry 06/29/20 06/29/20 06/29/20 21:28 21:33 21:38 Temperature 97.9 F Pulse Rate 95 H 90 88 Respiratory Rate Blood Pressure 117/58 Blood Pressure [Left] O2 Sat by Pulse 85 97 96 Oximetry 06/29/20 06/29/20 06/29/20 21:43 21:48 21:53 Temperature Pulse Rate 90 89 91 H Respiratory Rate Blood Pressure Blood Pressure [Left] O2 Sat by Pulse 95 95 96 Oximetry 06/29/20 06/29/20 06/29/20 21:58 22:03 22:09 Temperature Pulse Rate 92 H 90 94 H Respiratory Rate Blood Pressure 121/62 Blood Pressure [Left] O2 Sat by Pulse 96 97 Oximetry 06/29/20 06/29/20 06/29/20 22:14 22:19 22:24 Temperature Pulse Rate 89 90 93 H Respiratory Rate Blood Pressure Blood Pressure [Left] O2 Sat by Pulse 95 96 96 Oximetry 06/29/20 06/29/20 06/29/20 22:26 22:28 22:33 Temperature Pulse Rate 90 91 H Respiratory Rate Blood Pressure 121/62 125/68 Blood Pressure [Left] O2 Sat by Pulse 94 Oximetry 06/29/20 06/29/20 06/29/20 22:35 22:40 22:45 Temperature Pulse Rate 92 H 87 91 H Respiratory Rate Blood Pressure Blood Pressure [Left] O2 Sat by Pulse 96 97 97 Oximetry 06/29/20 06/29/20 06/29/20 23:04 23:22 23:23 Temperature Pulse Rate 85 109 H 106 H Respiratory Rate Blood Pressure 132/66 Blood Pressure [Left] O2 Sat by Pulse 94 96 Oximetry 06/29/20 06/29/20 06/29/20 23:28 23:29 23:33 Temperature 98.1 F Pulse Rate 97 H 91 H Respiratory Rate Blood Pressure 139/78 Blood Pressure [Left] O2 Sat by Pulse 97 98 Oximetry 06/29/20 06/29/20 06/29/20 23:38 23:43 23:48 Temperature Pulse Rate 85 86 86 Respiratory Rate Blood Pressure Blood Pressure [Left] O2 Sat by Pulse 97 97 97 Oximetry 06/29/20 06/29/20 06/30/20 23:53 23:58 00:03 Temperature Pulse Rate 85 88 85 Respiratory Rate Blood Pressure 135/73 Blood Pressure [Left] O2 Sat by Pulse 96 97 98 Oximetry 06/30/20 06/30/20 06/30/20 00:08 00:33 00:51 Temperature Pulse Rate 85 85 84 Respiratory Rate Blood Pressure 136/67 Blood Pressure [Left] O2 Sat by Pulse 96 96 Oximetry 06/30/20 06/30/20 06/30/20 01:02 01:03 01:33 Temperature Pulse Rate 82 80 Respiratory Rate Blood Pressure 133/69 128/69 Blood Pressure [Left] O2 Sat by Pulse 89 96 Oximetry 06/30/20 06/30/20 06/30/20 01:55 02:00 02:04 Temperature Pulse Rate 86 83 81 Respiratory Rate Blood Pressure 137/76 Blood Pressure [Left] O2 Sat by Pulse 97 94 Oximetry 06/30/20 06/30/20 06/30/20 02:05 02:10 02:36 Temperature Pulse Rate 81 85 83 Respiratory Rate Blood Pressure 122/66 Blood Pressure [Left] O2 Sat by Pulse 97 98 Oximetry 06/30/20 06/30/20 06/30/20 02:37 02:42 02:47 Temperature Pulse Rate 81 86 83 Respiratory Rate Blood Pressure 128/76 126/74 Blood Pressure [Left] O2 Sat by Pulse 98 99 99 Oximetry 06/30/20 06/30/20 02:52 02:57 Temperature Pulse Rate 81 85 Respiratory Rate Blood Pressure 116/64 129/63 Blood Pressure [Left] O2 Sat by Pulse 98 99 Oximetry - Exam Cardiovascular: Regular rate, Normal S1, Normal S2 Lungs: Clear to auscultation, Normal air movement Abdomen: Present: normal appearance, soft. Absent: distention, tenderness Uterus: Present: normal FHR: auscultation normal Cervical Dilatation: 5 Cervical Effacement Percentage: 80 station: -1 Uterine Contraction Pattern: Regular Uterine Tone Measurement Phase: Contraction Uterine Contraction Intensity: Moderate - Labs Labs: Abnormal Labs 06/26/20 06/26/20 06/26/20 20:17 20:17 20:17 WBC 13.1 H MCHC 37 H RDW 12.8 L Seg Neutrophils % 77.1 H Seg Neutrophils # 10.1 H Creatinine 0.5 L POC Glucose Magnesium AST < 5 L ALT < 5 L Lactate Dehydrogenase 277 H 06/26/20 06/27/20 06/27/20 21:11 08:33 18:38 WBC MCHC RDW Seg Neutrophils % Seg Neutrophils # Creatinine POC Glucose 167 H 247 H Magnesium 4.00 H AST ALT Lactate Dehydrogenase 06/27/20 06/27/20 06/28/20 20:23 22:43 05:19 WBC MCHC RDW Seg Neutrophils % Seg Neutrophils # Creatinine POC Glucose 106 H Magnesium 4.60 H 5.10 H AST ALT Lactate Dehydrogenase 06/28/20 06/28/20 06/28/20 12:40 15:28 18:16 WBC MCHC RDW Seg Neutrophils % Seg Neutrophils # Creatinine POC Glucose 144 H 157 H 117 H Magnesium AST ALT Lactate Dehydrogenase 06/28/20 06/29/20 06/29/20 22:32 00:31 02:29 WBC MCHC RDW Seg Neutrophils % Seg Neutrophils # Creatinine POC Glucose 109 H 126 H Magnesium 5.70 H AST ALT Lactate Dehydrogenase 06/29/20 06/29/20 06/29/20 06:30 06:52 10:35 WBC MCHC RDW Seg Neutrophils % Seg Neutrophils # Creatinine POC Glucose 138 H 142 H Magnesium 5.40 H AST ALT Lactate Dehydrogenase 06/29/20 06/29/20 06/29/20 13:35 18:33 21:23 WBC MCHC RDW Seg Neutrophils % Seg Neutrophils # Creatinine POC Glucose 177 H Magnesium 5.80 H 6.20 H AST ALT Lactate Dehydrogenase 06/30/20 06/30/20 00:58 Unknown WBC 20.0 H MCHC 35 H RDW 12.8 L Seg Neutrophils % Seg Neutrophils # Creatinine POC Glucose Magnesium 6.40 H AST ALT Lactate Dehydrogenase Laboratory Results - last 24 hr 06/29/20 06/29/20 06/29/20 06:30 06:52 10:35 WBC RBC Hgb Hct MCV MCH MCHC RDW Plt Count POC Glucose 138 H 142 H Magnesium 5.40 H Blood Type Antibody Screen 06/29/20 06/29/20 06/29/20 13:35 13:36 18:33 WBC RBC Hgb Hct MCV MCH MCHC RDW Plt Count POC Glucose Magnesium 5.80 H 6.20 H Blood Type A POSITIVE Antibody Screen Negative 06/29/20 06/30/20 06/30/20 21:23 00:58 Unknown WBC 20.0 H RBC 4.27 Hgb 13.1 Hct 37.2 MCV 87 MCH 31 MCHC 35 H RDW 12.8 L Plt Count 200 POC Glucose 177 H Magnesium 6.40 H Blood Type Antibody Screen
[2020-06-30] MEDS ORDERED: ceFAZolin/STERILE WATER 2 GM/20 ML SYRINGE IV ONE (03:30)
[2020-06-30] MEDS ORDERED: SODIUM CHLORIDE 0.9% IRR 1,500 ML BOTTLE IR ONE (03:30)
[2020-06-30] MEDS ORDERED: WATER FOR IRRIG STERILE 1,500 ML BOTTLE IR ONE (03:30)
[2020-06-30] MEDS ORDERED: ONDANSETRON 4 MG/2 ML INJ ONE (04:02)
[2020-06-30] MEDS ORDERED: OXYTOCIN 10 UNIT/1 ML INJ ONE ×2 (04:09)
[2020-06-30] MEDS ORDERED: PHENYLEPHRINE/NS 1,000 MCG/10 ML SYRINGE (OR USE) IV ONE (04:10)
--- NOTE | 2020-06-30 04:53 | Procedure Note ---
OB Delivery Note - Delivery Date of Delivery: 06/30/20 Surgeon: FLYNN RICHARDSON Estimated blood loss: 500cc - Section Preop diagnosis: arrest of dilation, other (failed induction) Postop diagnosis: same section procedure: primary low transverse Disposition: PACU Complications: none Narrative: see op report - A at 1 minute: 8 at 5 minutes: 9 Gender: Female
--- NOTE | 2020-06-30 05:06 | Operative Report ---
Operative Report Operative Report: Preoperative diagnosis: Intrauterine at 34 weeks 2. Failure to progress Postoperative diagnosis: Same Procedure: Primary low transverse section Surgeon: Dr. Margarita Skelton EBL: 500 Urine output: 100 mL IV fluids: 1100 mL Findings: Viable female in the OP position Weight 3 lbs. 14 oz. 1751g Apgars 8 and 9. Otherwise normal pelvic anatomy Specimens: None Complications: None Procedure: The patient was admitted to the OR with IV running and in place. She was properly identified as herself. She was given spinal anesthesia in the OR without difficulty. She was placed in the dorsal supine position with a leftward tilt. A Castro catheter was inserted. She was then prepped and draped in the normal sterile fashion. An Allis test was used to confirm adequate anesthesia. Once confirmed, the incision was made with the scalpel and carried to the underlying fascia using the scalpel and the Bovie. The fascia was incised in the midline and incision was extended bilaterally using the curved Molina scissors. The fascia was then dissected from the underlying rectus muscles in a series of sharp and blunt dissection using the Molina scissors. Muscles were in the in the midline sharply using Metzenbaum scissors and the peritoneum was entered into bluntly using the surgeon's fingers. A bladder blade was then placed into the incision to protect the bladder. Following this the bladder flap was created. Hysterotomy incision was then made in the scalpel. Upon uterine entry, the amniotic sac was ruptured for clear fluid. The infant was then delivered without difficulty. Her mouth and nose were suctioned on the field. The cord was clamped and cut and she was handed to the waiting NICU personnel. The uterus was then exteriorized and cleared of all clots and debris. The hysterotomy incision was then closed in a running locked fashion using 0 Vicryl. The abdomen was then copiously irrigated with warm normal saline. Following this the uterus was replaced into the abdominal cavity. At this point the muscles were reapproximated in the midline using individual sutures of 0 Vicryl. Following this the fascia was closed in a running fashion using 0 Vicryl. Tissue was then copiously irrigated. Retention sutures were placed in the subcutaneous fat tissue Skin was closed in a running fashion using 3-0 Monocryl. The sponge lap needle and instrument counts were correct 2. The patient tolerated the procedure well. She was taken to recovery in stable condition.
[2020-06-30] MEDS ORDERED: WITCH HAZEL/ GLYCERIN PAD TP PRN (05:07)
[2020-06-30] MEDS ORDERED: LANOLIN/ZINC/DIMETHICONE (LANSINOH) 7 GM TP PRN (05:07)
[2020-06-30] MEDS ORDERED: NALOXONE 0.4 MG/1 ML INJ IV PRN (05:07)
--- NOTE | 2020-06-30 05:19 | Post Anesthesia Evaluation ---
- Post Anesthesia Evaluation Patient Participated: Yes Airway Patent: Yes Stable Respiratory Function: Yes Nausea/Vomiting: No Temp > 96.8F: Yes Pain Manageable: Yes Adequeate Hydration: Yes Anesthesia Complications: No Block Receding Appropriately: Yes
--- NOTE | 2020-06-30 05:20 | Progress Note ---
Regional Anesthesia Block - Regional Anesthesia Block Start Time: 05:10 Stop Time: 05:15 Performed By:: KATIE MESA Procedure: U/S guided bilateral tap block performed for post-operative pain requested by Dr. Skelton. H&P & labs reviewed. Procedure explained, questions answered, consent obtained. Patient in the supine position with ekg, blood pressure cuff and pulse ox on and working in PACU. Timeout performed immediately before start of procedure. Probe placed in the mid-axillary line and the external oblique, internal oblique, and transverse abdominus muscles identified. Skin was cleansed with 0.5% Chlorahexadine and allowed to dry. A 4" 20 G Díaz echogenic needle was advanced in plane until the tip was in the fascial plane between the internal oblique and the transverse abdominus. After negative aspiration 35 ml/side of [30 ml 0.5% Bupivacaine], [50 mcg dexmedetomidine], [8 mg dexamethasone], and [40 ml sterile saline] was injected in 5 ml increments with negative aspiration in between. Patient tolerated procedure well. Marv GRAHAM
[2020-06-30] MEDS ORDERED: D5W/LACTATED RINGERS 1,000 ML IV SCH (06:00)
[2020-06-30] MEDS ORDERED: OXYTOCIN DRIP 30 UNITS/500 ML BAG IV SCH (06:00)
[2020-06-30] MEDS: MAGNESIUM SULFATE 40GM/1000ML 40 GM/1,000 ML BAG IV SCH ×2 (06:20→21:19)
[2020-06-30] MEDS ORDERED: LACTATED RINGERS 1,000 ML ONE ×2 (06:24→19:24)
[2020-06-30] MEDS: oxyCODONE /ACETAMINOPHEN 5-325MG TAB PO PRN ×3 (07:45→16:36)
[2020-06-30] MEDS: valACYclovir 500 MG TAB PO SCH (10:16)
[2020-06-30] MEDS: FERROUS SULFATE 325 MG TAB PO SCH (10:16)
[2020-06-30] MEDS: PRENATAL VIT27-FE FUMARATE-FOLIC ACID VIT TAB PO SCH (10:16)
[2020-06-30] MEDS: FAMOTIDINE 20 MG/2 ML INJ IV SCH (10:17)
[2020-06-30] MEDS: MORPHINE 2 MG/1 ML INJ IV PRN ×2 (10:45→19:00)
[2020-06-30 19:59] LABS: Hematocrit 33.9 % (30.3-42.9); Hemoglobin 11.8 gm/dl (10.1-14.3)
[2020-06-30] MEDS ORDERED: LACTATED RINGERS 1,000 ML IV ONE (21:02)
[2020-06-30] MEDS: KETOROLAC 30 MG/1 ML INJ IV PRN (21:34)
[2020-06-30] MEDS: INSULIN REGULAR, HUMAN 100 UNIT/ML 3ML VIAL SUB-Q SCH (21:42)
[2020-07-01] MEDS: oxyCODONE /ACETAMINOPHEN 5-325MG TAB PO PRN ×5 (00:43→22:49)
[2020-07-01] MEDS: PRENATAL VIT27-FE FUMARATE-FOLIC ACID VIT TAB PO SCH (10:20)
[2020-07-01] MEDS: FAMOTIDINE 20 MG TAB PO SCH ×2 (10:21→22:49)
[2020-07-01] MEDS: valACYclovir 500 MG TAB PO SCH (10:21)
[2020-07-01] MEDS: FERROUS SULFATE 325 MG TAB PO SCH (10:21)
[2020-07-01] MEDS: KETOROLAC 30 MG/1 ML INJ IV PRN (10:22)
[2020-07-01] MEDS: INSULIN REGULAR, HUMAN 100 UNIT/ML 3ML VIAL SUB-Q SCH ×4 (10:39→22:54)
--- NOTE | 2020-07-01 15:14 | Event Note ---
Date: 07/01/20 Went to room to see patient. Pt not in room. No complaints per nursing staff. Per record, BP now stable and within normal range.
[2020-07-01] MEDS: MORPHINE 2 MG/1 ML INJ IV PRN (15:56)
[2020-07-02] MEDS: INSULIN REGULAR, HUMAN 100 UNIT/ML 3ML VIAL SUB-Q SCH ×3 (02:28→10:25)
[2020-07-02] MEDS: oxyCODONE /ACETAMINOPHEN 5-325MG TAB PO PRN ×4 (05:38→23:04)
[2020-07-02] MEDS ORDERED: HYDROcodone/ACETAMINOPHEN 5-325 MG TAB PO PRN (06:43)
[2020-07-02] MEDS: FERROUS SULFATE 325 MG TAB PO SCH (10:10)
[2020-07-02] MEDS: PRENATAL VIT27-FE FUMARATE-FOLIC ACID VIT TAB PO SCH (10:11)
[2020-07-02] MEDS: valACYclovir 500 MG TAB PO SCH (10:13)
[2020-07-02] MEDS: FAMOTIDINE 20 MG TAB PO SCH ×2 (10:24→22:43)
[2020-07-02] MEDS ORDERED: FUROSEMIDE 40 MG/4 ML INJ IV SCH (13:00)
--- NOTE | 2020-07-02 13:07 | Progress Note ---
Assessment and Plan A: POD#2 s/p primary at 33w6d s/p Chronic HTN with superimposed preeclampsia s/p magnesium sulfate for seizure prophylaxis IUGR EFW 1817g +/1 269g (5%ile) Insulin-dependent Diabetes Mellitus Obesity Anxiety previously prescribed Prozac and Vistaril P: Restart scheduled insulin Lasix IV Routine postop care Subjective - Subjective Date of service: 07/02/20 Principal diagnosis: IUP at 33w6d, cHTN with superimposed preeclampsia w/ severe features Interval history: Pt reports bilateral "kidney pain" which she attributes to being on magnesium because it occurred in a prior admission where she received magnesium and lasted for 2-3 days. Patient reports: appetite normal, voiding normally, pain well controlled, flatus, ambulating normally, no bowel movement : in NICU Objective - Vital Signs Latest vital signs: Vital Signs Temp Pulse Resp BP BP Pulse Ox 07/02/20 08:25 98.2 F 78 20 151/83 07/02/20 02:22 97.8 F 82 20 154/86 95 07/01/20 22:49 160/76 07/01/20 21:52 97.7 F 96 H 18 160/76 96 07/01/20 16:25 98.6 F 84 18 150/87 99 Intake and Output 07/01/20 07/02/20 07/02/20 22:59 06:59 14:59 Intake Total 600 360 240 Balance 600 360 240 Intake: Oral 240 120 240 Intake, Free Water 360 240 Other: Total, Intake Amount 240 120 240 # Voids Void 1 1 - Exam Breasts: Present: deferred Abdomen: Present: soft (obese) Uterus: Present: fundal height below umbilicus Extremities: Present: edema (2+) Incision: Present: intact - Labs Labs: Abnormal lab results 07/01/20 07/01/20 07/02/20 Range/Units 19:13 22:19 02:36 POC Glucose 221 H 177 H 160 H (70-105) mg/dL 07/02/20 07/02/20 Range/Units 05:52 10:23 POC Glucose 116 H 192 H (70-105) mg/dL
[2020-07-02] MEDS ORDERED: DEXTROSE 50% IN WATER (25GM) 50 ML SYRINGE IV PRN (13:08)
[2020-07-02] MEDS ORDERED: INSULIN REGULAR, HUMAN 100 UNIT/ML 3ML VIAL SUB-Q PRN (13:10)
[2020-07-02] MEDS ORDERED: INSULIN REGULAR, HUMAN 100 UNIT/ML 3ML VIAL SUB-Q SCH (17:00)
[2020-07-02] MEDS ORDERED: INSULIN NPH, HUMAN 100 UNIT/1 ML SUB-Q SCH (17:00)
[2020-07-02] MEDS ORDERED: HYDROcodone/ACETAMINOPHEN 5-325 MG TAB ONE (23:00)
[2020-07-03] MEDS ORDERED: PRENATAL VIT27-FE FUMARATE-FOLIC ACID VIT TAB PO ONE (06:00)
[2020-07-03] MEDS ORDERED: FAMOTIDINE 20 MG TAB ONE (06:00)
[2020-07-03] MEDS ORDERED: HYDROcodone/ACETAMINOPHEN 5-325 MG TAB ONE (06:00)
[2020-07-03] MEDS ORDERED: FERROUS SULFATE 325 MG TAB PO ONE (06:00)
[2020-07-03] MEDS ORDERED: INSULIN REGULAR, HUMAN 100 UNIT/ML 3ML VIAL SUB-Q SCH (08:00)
[2020-07-03] MEDS ORDERED: INSULIN NPH, HUMAN 100 UNIT/1 ML SUB-Q SCH (08:00)
[2020-07-03] MEDS ORDERED: valACYclovir 500 MG TAB ONE (10:00)
[2020-07-03 18:27] VITALS: BP 138/89
--- NOTE | 2020-07-10 20:06 | Progress Note ---
Assessment and Plan A: POD3 s/p Primary C/S at 33.6wks, CHTN w. superimposed Preeclampsia and insulin dependant diabetes. S/P lasix for pedal edema. P: Discharge home later today. Pt to continue home insulin regimen and f/u in office in 2 weeks for incision check. Subjective - Subjective Date of service: 07/03/20 Principal diagnosis: IUP at 33w6d, cHTN with superimposed preeclampsia w/ severe features Interval history: POD3 s/p primary C/S. Patient reports: appetite normal, voiding normally, pain well controlled, flatus, bowel movement, ambulating normally : in NICU Objective - Exam Breasts: Present: deferred Uterus: Present: normal, fundal height below umbilicus Extremities: Present: edema (pedal) Incision: Present: dry, dressed
--- NOTE | 2020-07-10 22:25 | Discharge Summary ---
Providers - Providers Date of Admission: 06/26/20 18:08 Date of discharge: 07/03/20 Attending physician: GIANNA BUTTS 06/27/20 07:00 Consult to Physician [CONS] Routine Comment: Consulting Provider: NUVIA JULIEN Physician Instructions: Reason For Exam: IUP at 33 wks, chTN with superimposed pre 06/27/20 07:57 Consult to Physician [CONS] Routine Comment: Consulting Provider: ZAC CERDA Physician Instructions: Reason For Exam: IUP at 33w4d, CHTN with superimposed pre, inductio Primary care physician: GIANNA BUTTS Hospitalization Reason for admission: other (elevated blood pressure ) Delivery: Procedure: section, primary low transverse Procedure details: Please see operative report Incision: intact Other procedures: none complications: none Discharge diagnosis: delivery [place] baby: female Hospital course: Pt was admitted for elevated blood pressures at 33 wks in the setting of chronic hypertension with superimposed preeclampsia and insulin dependent diabetes. She underwent induction of labor and ultimately required a section which she tolerated well. She received magnesium sulfate during her induction and for 24 hours after her section. Her postoperative course was complicated by lower extremity edema requiring IV Lasix and was otherwise uncomplicated. She met discharge criteria on POD#3. She will follow up in 1 week for a blood pressure check. Condition at discharge: Good Disposition: DC-01 TO HOME OR SELFCARE - Discharge Diagnoses (1) Chronic hypertension with superimposed pre-eclampsia Status: Acute (2) Diabetes in Status: Acute Qualifiers: Diabetes in type: pre-existing, type 2 Trimester: third trimester Qualified Code(s): O24.113 - Pre-existing type 2 diabetes mellitus, in , third trimester (3) Obesity Status: Acute Qualifiers: Obesity type: unspecified obesity type Obesity classification: adult class 1 (BMI 30 - 34.9) Serious obesity comorbidity presence: unspecified whether serious comorbidity present Body mass index: BMI 34.0-34.9 Qualified Code(s): E66.9 - Obesity, unspecified; Z68.34 - Body mass index [BMI] 34.0-34.9, adult (4) delivery Status: Acute Plan - Discharge Medications Prescriptions: labetaloL [Labetalol 200mg TAB] 200 mg PO BID #60 tablet Ibuprofen [Motrin] 800 mg PO Q8HR PRN #30 tablet PRN Reason: Pain, Moderate (4-6) oxyCODONE /ACETAMINOPHEN [Percocet 5/325] 1 tab PO Q6HR PRN #30 tablet PRN Reason: Pain - Provider Discharge Summary Activity: routine, no sex for 6 weeks, no heavy lifting 4 weeks, no strenuous exercise Diet: routine Instructions: routine Additional instructions: [] Smoking cessation referral if applicable(refer to patient education folder for contact #) [] Refer to [facility]'s [facility] Booklet Call your doctor immediately for: * Fever > 100.5 * Heavy vaginal bleeding ( >1 pad per hour) * Severe persistent headache * Shortness of breath * Reddened, hot, painful area to leg or breast * Drainage or odor from incision. * Keep incision clean and dry at all times and follow doctor's instructions regarding bathing/showering - Follow up plan Follow up: GIANNA BUTTS MD [Primary Care Provider] - 7 Days
== END 2020-07-03 15:55 | disposition home or self-care (01) | DRG 765 ==
LOC: LD 18:08 → OB 07-01 05:20
PROVIDERS: ADMIT Obstetrics & Gynecology; ATTEND Obstetrics & Gynecology
PROC: 3E0P7VZ Introduction of Hormone into Female Reproductive, Via Natural or Artificial Opening (ICD-10-PCS; principal; 2020-06-28)
PROC: 3E0R3BZ Introduction of Anesthetic Agent into Spinal Canal, Percutaneous Approach (ICD-10-PCS; 2020-06-28)
PROC: 00HU33Z Insertion of Infusion Device into Spinal Canal, Percutaneous Approach (ICD-10-PCS; 2020-06-28)
PROC: 10H07YZ Insertion of Other Device into Products of Conception, Via Natural or Artificial Opening (ICD-10-PCS; 2020-06-29)
PROC: 10907ZC Drainage of Amniotic Fluid, Therapeutic from Products of Conception, Via Natural or Artificial Opening (ICD-10-PCS; 2020-06-29)
PROC: 10D00Z1 Extraction of Products of Conception, Low, Open Approach (ICD-10-PCS; 2020-06-30)
DX: O14.14 Severe pre-eclampsia complicating childbirth (principal); O98.32 Other infections with a predominantly sexual mode of transmission complicating childbirth; O24.12 Pre-existing type 2 diabetes mellitus, in childbirth; O36.5990 Maternal care for other known or suspected poor fetal growth, unspecified trimester, not applicable or unspecified; E11.8 Type 2 diabetes mellitus with unspecified complications; O61.9 Failed induction of labor, unspecified; O99.62 Diseases of the digestive system complicating childbirth; E11.9 Type 2 diabetes mellitus without complications; K21.9 Gastro-esophageal reflux disease without esophagitis; O99.344 Other mental disorders complicating childbirth; F41.9 Anxiety disorder, unspecified; Z90.49 Acquired absence of other specified parts of digestive tract; Z79.4 Long term (current) use of insulin; O99.214 Obesity complicating childbirth; E66.9 Obesity, unspecified; A60.00 Herpesviral infection of urogenital system, unspecified; F32.9 Major depressive disorder, single episode, unspecified; Z20.828 Contact with and (suspected) exposure to other viral communicable diseases; Z3A.34 34 weeks gestation of pregnancy
CPT/HCPCS: 36415; 59200; 76805; 76816; 76819; 82565; 82962; 83615; 83735; 84450; 84460; 84550; 85014; 85018; 85025; 85027; 86592; 86850; 86900; 86901; 88307; 96372; G0378; A6250; J0290; J0595; J0690; J0702; J1815; J1885; J1940; J2270; J2370; J2405; J2590; J2765; J3410; J3475; J7120; U0003